=== PATIENT | female | born 1965 | race African-American/Black ===

== ENCOUNTER 2019-10-14 13:55 | Outpatient (CLI) | payer OTHER, SELFPAY ==
[2019-10-14 15:13] LABS: Magnesium 2.1 mg/dL (1.6-2.3); Phosphorus 4.8 mg/dL (2.5-4.5)
[2019-10-14 15:20] LABS: Transferrin 260 mg/dL (206-381)
[2019-10-14 15:40] LABS: Parathyroid Intact 26.7 pg/mL (7.5-53.5)
[2019-10-14 16:07] LABS: Iron 77 ug/dL (37-170)
[2019-10-14 16:58] LABS: Folic Acid > 20.0 ng/mL (2.76->20); Vitamin B12 > 1000.0 pg/mL (239-931)
[2019-10-17 08:33] LABS: Vitamin B1 17 nmol/L (8-30)
== END 2019-10-14 13:56 | disposition home or self-care (01) ==
PROVIDERS: PCP Family Medicine
DX: E66.01 Morbid (severe) obesity due to excess calories (principal); Z98.84 Bariatric surgery status
CPT/HCPCS: 36415; 82306; 82607; 82728; 82746; 83540; 83735; 83970; 84100; 84425; 84466

== ENCOUNTER 2020-06-22 09:35 | Outpatient (CLI) | payer OTHER, SELFPAY ==
[2020-06-22 10:14] LABS: Basophils Absolute Auto 0.1 K/mm3 (0.0-0.1); Basophils Percent Auto 0.8 % (0.2-1.2); Eosinophils Absolute Auto 1.1 K/mm3 (0-0.3); Eosinophils Percent Auto 15.6 % (0-4.4); Hemoglobin 11.1 g/dL (12.0-15.0); Immature Granulocyte Absolute 0.02 K/mm3 (0.00-0.031); Immature Granulocyte Percent A 0.3 % (0-0.5); Lymphocytes Absolute Auto 1.98 K/mm3 (0.9-3.2); Lymphocytes Percent Auto 27.3 % (18.3-44.2); Mean Corpuscular HGB Conc 31.7 g/dl (32-36); Mean Corpuscular Hemoglobin 27.8 pg (26-34); Mean Corpuscular Volume 87.5 fl (80-100); Monocytes Absolute Auto 0.5 K/mm3 (0.1-0.6); Monocytes Percent Auto 7.2 % (2.6-8.5); Neutrophils Absolute Auto 3.5 K/mm3 (1.3-6.7); Neutrophils Percent Auto 48.8 % (45.5-73.1); Platelet Count Result 234 k/mm3 (150-375); Red Cell Distribution Width 15.5 % (11.5-14.5); White Blood Count 7.2 K/mm3 (4.5-10.0)
[2020-06-22 10:25] LABS: INR 1.2
[2020-06-22 10:26] LABS: Partial Thromboplastin Time 41.9 SECONDS (22.3-36.8)
[2020-06-22 10:27] LABS: Alanine Aminotransferase 13 U/L (4-35); Albumin Level 3.8 g/dL (3.5-5.1); Alkaline Phosphatase 95 U/L (38-126); Anion Gap 4 mmol/L (8-16); Aspartate Amino Transferase 23 U/L (14-36); Bilirubin,Total 0.4 mg/dL (0.2-1.3); Blood Urea Nitrogen 15 mg/dL (7-17); Calcium 8.9 mg/dL (8.4-10.2); Carbon Dioxide 28 mmol/L (22-30); Chloride 107 mmol/L (98-107); Cholesterol 183 mg/dL (0-200); Estimated Glomerular Filt Rate > 60; Glucose 89 mg/dL (65-105); HDL Direct 44 mg/dL; Potassium 4.4 mmol/L (3.4-5.0); Sodium 139 mmol/L (137-145); Triglycerides 84 mg/dL (<150)
[2020-06-22 10:38] LABS: LDL Cholesterol Direct 96 mg/dL
[2020-06-22 10:56] LABS: Hemoglobin A1C 5.3 % (<5.7); Iron 51 ug/dL (37-170)
[2020-06-22 11:01] LABS: Parathyroid Intact 139.3 pg/mL (7.5-53.5)
[2020-06-22 11:07] LABS: Percent Iron Saturation 15 % (20-50)
[2020-06-22 11:33] LABS: Folic Acid 18.2 ng/mL (2.76->20)
[2020-06-22 11:40] LABS: Vitamin D 25 Hydroxy 27.6 ng/mL
[2020-06-28 07:44] LABS: Vitamin B1 8 nmol/L (8-30)
== END 2020-06-22 09:36 | disposition home or self-care (01) ==
PROVIDERS: PCP Family Medicine
DX: Z01.818 Encounter for other preprocedural examination (principal); K21.9 Gastro-esophageal reflux disease without esophagitis; E10.49 Type 1 diabetes mellitus with other diabetic neurological complication; G47.33 Obstructive sleep apnea (adult) (pediatric); I10 Essential (primary) hypertension
CPT/HCPCS: 36415; 80053; 80061; 82306; 82607; 82728; 82746; 83036; 83540; 83550; 83735; 83970; 84425; 84443; 85025; 85610; 85730

== ENCOUNTER 2020-07-25 17:40 | Emergency (ER) | payer OTHER, SELFPAY ==
--- NOTE | 2020-07-25 17:48 | ED.SKABFB ---
HPI - Skin/Abscess/Foreign Bdy General Chief complaint: Skin/Abscess/Foreign Body Stated complaint: Rash Time Seen by Provider: 07/25/20 17:48 Source: patient and RN notes reviewed Mode of arrival: ambulatory Limitations: no limitations History of Present Illness HPI narrative: 54-year-old female presents to [facility] with complaints of having rash in the groin area for the past 2 weeks. Patient ambulates with a walker and is morbidly obese, wears depends daily for urinary leakage and states that she has been using a new kind of depends which may precipitated the rash. She has some red irritated areas to her upper inner thighs and groin area, no open skin area or any drainage noted, states no pain but is itchy. Patient states she has applied some Benadryl cream to rash area, denies any fevers, or other symptoms. MD complaint: rash and discoloration Onset (ago): week(s) (2) Tetanus up to date: yes Severity: mild Quality: pruritic Related Data Home Medications Medication Instructions Recorded Confirmed baclofen mg 07/25/20 dabigatran etexilate [Pradaxa] mg PO 07/25/20 diltiazem HCl PO 07/25/20 dronedarone [Multaq] mg 07/25/20 ergocalciferol (vitamin D2) 07/25/20 fluticasone propionate INTRANASAL 07/25/20 furosemide 07/25/20 gabapentin 07/25/20 hydrocodone-acetaminophen tablet 07/25/20 loratadine mg 07/25/20 metoprolol tartrate 07/25/20 multivitamin [Daily-Elaine] tablet 07/25/20 Allergies Allergy/AdvReac Type Severity Reaction Status Date / Time morphine Allergy Unknown Verified 11/21/15 11:30 Penicillins Allergy Unknown Verified 11/21/15 11:30 Review of Systems Review of Systems: Narrative: CONSTITUTIONAL: Denies fever, chills, or sweats. EYES: Denies visual changes, redness, or discharge. ENT: Denies rhinorrhea, congestion, sore throat, or otalgia. CARDIOVASCULAR: Denies chest pain, palpitations, has trace pedal edema RESPIRATORY: Denies cough or dyspnea. GASTROINTESTINAL: Denies abdominal pain, nausea, vomiting, or diarrhea. GENITOURINARY: Denies dysuria or hematuria. SKIN:Positive for rash to upper thighs groin area with itching MUSCULOSKELETAL: Denies back pain,positive for pain to right hip join or myalgia. NEUROLOGIC: Denies headache, numbness, or weakness. PSYCHIATRIC: Denies anxiety or depression. All systems reviewed & are unremarkable except as noted in HPI and below PMFSH Past Medical History Medical History (Updated 07/27/20 @ 08:44 by Sabrina Hurtado NP) Afib Arthritis CHF (congestive heart failure) Diabetes DVT (deep venous thrombosis) HTN (hypertension) Sleep apnea in adult Surgical History Surgical History (Updated 07/27/20 @ 08:42 by Sabrina Hurtado NP) H/O section History of hernia repair History of sleeve gastrectomy Hx of tonsillectomy as child Family History Family History Father Hypertension Cerebrovascular accident Other Family history of arthritis Social History Social History (Updated 07/27/20 @ 08:38 by Sabrina Hurtado NP) Smoking status: Former smoker Tobacco type: cigarettes Alcohol intake: never Substance use: never Living arrangements: with family Gender identity (if verbalized by the patient): Female Comments At time of signature, agree with nursing past medical, surgical, social and family history. There is no relevant family history pertinent to the presenting complaint Exam Narrative: Exam Narrative: GENERAL: Well-appearing, well-nourished,morbidly obese and in no acute distress. HEAD: Normocephalic, atraumatic. EYES: PERRLA and EOMI. ENT: Nares clear, no rhinorrhea or epistaxis. Mucous membranes moist.TM's normal with good light reflex, throat pink with no swelling or exudates. NECK: Supple.no lymphadenopathy CHEST: Clear to auscultation. No respiratory distress.SAO2 100% on room air HEART: irregular rate and rhythm. No murmur heard. Normal joselito
[2020-07-25 17:51] VITALS: BP 160/85; PULSE 55; RESP 18; TEMP 37.7; O2SAT 100
== END 2020-07-25 18:34 | disposition home or self-care (01) ==
PROVIDERS: Emergency Provider Registered Nurse
DX: B37.89 Other sites of candidiasis (principal); L24.89 Irritant contact dermatitis due to other agents; Z87.891 Personal history of nicotine dependence; M19.90 Unspecified osteoarthritis, unspecified site; I11.0 Hypertensive heart disease with heart failure; I50.9 Heart failure, unspecified; E11.9 Type 2 diabetes mellitus without complications; Z86.718 Personal history of other venous thrombosis and embolism
CPT/HCPCS: 99213; G0463

== ENCOUNTER 2020-08-30 10:06 | Outpatient (CLI) | payer OTHER, SELFPAY | END 2020-08-30 10:07 | disposition home or self-care (01) | PROVIDERS: PCP Family Medicine | DX: Z01.818 Encounter for other preprocedural examination (principal) | CPT/HCPCS: 36415; 80323; G0480 ==

== ENCOUNTER 2020-09-20 11:28 | Outpatient (CLI) | payer OTHER, SELFPAY | END 2020-09-20 11:29 | disposition home or self-care (01) | LOC: ANHLAB 11:32 | PROVIDERS: PCP Family Medicine | DX: Z01.812 Encounter for preprocedural laboratory examination (principal) | CPT/HCPCS: 36415; 80323; 82306; G0480 ==

== ENCOUNTER 2020-10-12 13:27 | Outpatient (CLI) | payer OTHER, SELFPAY ==
--- NOTE | ~2020-10-12 | XR_ITS ---
EXAMINATION: XR knee LT 3V DATE: 10/12/2020 14:34 INDICATION: Chronic left knee pain. TECHNIQUE: 3 views of left knee were obtained. COMPARISON: Left knee radiographs 03/20/2017 FINDINGS: Bone alignment is normal. No fracture. There is moderate osteoarthritis of medial compartme nt and mild osteoarthritis of lateral and patellofemoral compartments. No knee joint effusion. IMPRESSION: 1. Moderate left knee osteoarthritis. Reviewed, dictated and finalized at location A. TING SERVICES COORDINATOR
--- NOTE | ~2020-10-12 | XR_ITS ---
XR hip RT min 2V DATE: 10/12/2020 14:34 INDICATION: Chronic right hip pain TECHNIQUE: AP and lateral views COMPARISON: 11/09/2018 right hip FINDINGS: There is severe right hip joint space narrowing and spurring, consistent with severe osteoa rthritis. Due to body habitus, bone detail is limited. In particular, the femoral head detail is somewhat limit ed, preventing ideal evaluation for avascular necrosis. MR imaging would be helpful for this purpose. No fracture or dislocation or bone destruction is evident. The pubic symphysis and right sacroiliac joint are intact. IMPRESSION: Severe right hip osteoarthritis Reviewed, dictated and finalized at location A. IC AID ELIGIBILITY ASSISTANT
== END 2020-10-12 13:28 | disposition home or self-care (01) ==
PROVIDERS: PCP Family Medicine; Visit Provider Family Medicine
DX: M25.562 Pain in left knee (principal); M17.12 Unilateral primary osteoarthritis, left knee; M16.11 Unilateral primary osteoarthritis, right hip
CPT/HCPCS: 73502; 73562

== ENCOUNTER 2021-01-10 14:44 | Outpatient (CLI) | payer OTHER, SELFPAY ==
--- NOTE | ~2021-01-10 | MM_ITS ---
EXAMINATION: MM screening segundo BI w spencer HISTORY: Screening mammogram TECHNIQUE: Craniocaudal and mediolateral oblique 3-D tomosynthesis images were obtained and synthetic 2-D images were generated. CAD analysis was submitted and interpreted. COMPARISON: No prior mammogram is available for comparison at this institution. BREAST PARENCHYMAL COMPOSITION: The breasts are almost entirely fatty. FINDINGS: There is no evidence of suspicious mass, calcification, or architectural distortion to sugg est malignancy in either breast. There has been no suspicious interval change. IMPRESSION: 1. No mammographic evidence of malignancy. 2. Recommend routine screening mammography in one year. BI-RADS Category 1: Negative Reviewed, dictated and finalized at location A.
== END 2021-01-10 14:45 | disposition home or self-care (01) ==
LOC: ANHIMG 14:50
PROVIDERS: PCP Family Medicine; Visit Provider Family Medicine
DX: Z12.31 Encounter for screening mammogram for malignant neoplasm of breast (principal)
CPT/HCPCS: 77063; 77067

== ENCOUNTER 2021-04-24 12:16 | Outpatient (CLI) | payer OTHER, SELFPAY ==
[2021-04-24 12:40] LABS: Basophils Absolute Auto 0.1 K/mm3 (0.0-0.1); Basophils Percent Auto 0.8 % (0.2-1.2); Eosinophils Absolute Auto 0.5 K/mm3 (0-0.3); Eosinophils Percent Auto 5.8 % (0-4.4); Hematocrit 35.8 % (37.0-47.0); Immature Granulocyte Absolute 0.03 K/mm3 (0.00-0.031); Immature Granulocyte Percent A 0.4 % (0-0.5); Lymphocytes Absolute Auto 2.64 K/mm3 (0.9-3.2); Lymphocytes Percent Auto 34.2 % (18.3-44.2); Mean Corpuscular HGB Conc 30.7 g/dl (32-36); Mean Corpuscular Hemoglobin 27.1 pg (26-34); Mean Corpuscular Volume 88.2 fl (80-100); Mean Platelet Volume 11.1 fl (7.4-10.4); Monocytes Absolute Auto 0.8 K/mm3 (0.1-0.6); Monocytes Percent Auto 10.4 % (2.6-8.5); Neutrophils Absolute Auto 3.7 K/mm3 (1.3-6.7); Neutrophils Percent Auto 48.4 % (45.5-73.1); Platelet Count Result 227 k/mm3 (150-375); Red Blood Count 4.06 M/mm3 (4.2-5.4); Red Cell Distribution Width 15.9 % (11.5-14.5); White Blood Count 7.7 K/mm3 (4.5-10.0)
[2021-04-24 13:28] LABS: Alanine Aminotransferase 13 U/L (4-35); Albumin Level 3.9 g/dL (3.5-5.1); Alkaline Phosphatase 92 U/L (38-126); Anion Gap 9 mmol/L (8-16); Aspartate Amino Transferase 23 U/L (14-36); Bilirubin,Total 0.5 mg/dL (0.2-1.3); Blood Urea Nitrogen 24 mg/dL (7-17); Carbon Dioxide 22 mmol/L (22-30); Chloride 107 mmol/L (98-107); Cholesterol 215 mg/dL (0-200); Estimated Glomerular Filt Rate > 60; Glucose 91 mg/dL (65-110); HDL Direct 51 mg/dL; Potassium 4.1 mmol/L (3.4-5.0); Sodium 138 mmol/L (137-145); Triglycerides 92 mg/dL (<150)
[2021-04-24 13:39] LABS: LDL Cholesterol Direct 95 mg/dL
== END 2021-04-24 12:17 | disposition home or self-care (01) ==
PROVIDERS: PCP Family Medicine; Visit Provider Nurse Practitioner Family
DX: E78.5 Hyperlipidemia, unspecified (principal); D64.9 Anemia, unspecified
CPT/HCPCS: 36415; 80053; 80061; 85025

== ENCOUNTER 2021-04-24 12:47 | Emergency (ER) | payer OTHER, SELFPAY ==
--- NOTE | ~2021-04-24 | XR_ITS ---
EXAMINATION: XR wrist RT min 3V INDICATION: Right wrist pain TECHNIQUE: Four views of the right wrist are obtained. COMPARISON: None available FINDINGS: There is no fracture, dislocation, or subluxation. Mild osteoarthritis is seen at the first carpometacarpal joint. The soft tissues are unremarkable. IMPRESSION: 1. No acute osseous abnormality. Reviewed, dictated and finalized at location B.
[2021-04-24 13:39] VITALS: BP 118/46; PULSE 52; RESP 14; TEMP 36.3; O2SAT 99
[2021-04-24 14:46] VITALS: BP 145/66; PULSE 63; RESP 16; O2SAT 96
--- NOTE | 2021-04-24 15:05 | ED.GENADULT ---
HPI - General Adult General Chief complaint: Extremity Problem,Nontraumatic Stated complaint: rt wrist pain Time Seen by Provider: 04/24/21 14:50 Source: patient Mode of arrival: ambulatory Limitations: no limitations History of Present Illness HPI narrative: Patient presents for evaluation of right wrist pain. Symptom onset last week. She cannot identify any precipitating cause or injury. Pain is constant, described as [id number] , rated 7 out of 10 in severity. She has chronic hip pain for which she takes hydrocodone. She states that medication has somewhat helped her pain. She denies loss of range of motion. She is right hand dominant. She has a hx of gout about fifteen years ago but states that her current symptoms are not consistent with those experienced in past with gout. She denies fever, chills, redness, drainage from the affected area. She has underlying history of diabetes but is no longer medication his blood sugars are all under 120. She is currently anticoagulated with Eliquis, recently switched from Pradaxa. No additional complaints or concerns. Related Data Home Medications Medication Instructions Recorded Confirmed baclofen mg 07/25/20 dabigatran etexilate [Pradaxa] mg PO 07/25/20 diltiazem HCl PO 07/25/20 dronedarone [Multaq] mg 07/25/20 ergocalciferol (vitamin D2) 07/25/20 fluticasone propionate INTRANASAL 07/25/20 furosemide 07/25/20 gabapentin 07/25/20 hydrocodone-acetaminophen tablet 07/25/20 loratadine mg 07/25/20 metoprolol tartrate 07/25/20 multivitamin [Daily-Elaine] tablet 07/25/20 Allergies Allergy/AdvReac Type Severity Reaction Status Date / Time morphine Allergy Unknown Verified 11/21/15 11:30 Penicillins Allergy Unknown Verified 11/21/15 11:30 Review of Systems Review of Systems: CONSTITUTIONAL: Denies fever, chills, or sweats. EYES: Denies visual changes, redness, or discharge. ENT: Denies rhinorrhea, congestion, sore throat, or otalgia. CARDIOVASCULAR: Denies chest pain, palpitations, or edema. RESPIRATORY: Denies cough or dyspnea. GASTROINTESTINAL: Denies abdominal pain, nausea, vomiting, or diarrhea. GENITOURINARY: Denies dysuria or hematuria. SKIN: Denies rash or itching. MUSCULOSKELETAL: Reports right wrist pain. Denies back pain, joint pain, or myalgia. NEUROLOGIC: Denies headache, numbness, dizziness, or weakness. PSYCHIATRIC: Denies anxiety or depression. [facility] Past Medical History Medical History Afib Arthritis CHF (congestive heart failure) Diabetes DVT (deep venous thrombosis) HTN (hypertension) Sleep apnea in adult Surgical History Surgical History H/O section History of hernia repair History of sleeve gastrectomy Hx of tonsillectomy as child Family History Family History Father Hypertension Cerebrovascular accident Other Family history of arthritis Social History Social History Smoking status: Former smoker Tobacco type: cigarettes Alcohol intake: never Substance use: never Gender identity (if verbalized by the patient): Female Exam Narrative: GENERAL: Well-appearing, well-nourished, and in no acute distress. HEAD: Normocephalic, atraumatic. EYES: PERRLA and EOMI. ENT: Nares clear, no rhinorrhea or epistaxis. Mucous membranes moist. Oropharynx without tonsillar hypertrophy exudate or other lesions. Bilateral TMs pearly romero nonbulging NECK: Supple. No adenopathy or masses. No carotid bruits or JVD CHEST: Clear to auscultation. No respiratory distress. No wheezes rales or rhonchi HEART: Regular rate and rhythm. No murmur heard. Normal peripheral pulses. ABDOMEN: Soft, nontender, nondistended, normal active bowel sounds. EXTREMITIES: Full range of motion o
== END 2021-04-24 15:59 | disposition home or self-care (01) ==
LOC: ANHED 15:44
PROVIDERS: Emergency Provider Nurse Practitioner; PCP Family Medicine
DX: M77.9 Enthesopathy, unspecified (principal); I48.91 Unspecified atrial fibrillation; M19.90 Unspecified osteoarthritis, unspecified site; I11.0 Hypertensive heart disease with heart failure; I50.9 Heart failure, unspecified; E11.9 Type 2 diabetes mellitus without complications; G47.30 Sleep apnea, unspecified
CPT/HCPCS: 36415; 73110; 80053; 80061; 85025; 99283

== ENCOUNTER 2022-02-07 10:22 | Outpatient (CLI) | payer OTHER, SELFPAY ==
--- NOTE | ~2022-02-07 | MM_ITS ---
EXAMINATION: MM screening segundo BI w spencer HISTORY: Screening mammogram TECHNIQUE: Craniocaudal and mediolateral oblique 3-D tomosynthesis images were obtained and synthetic 2-D images were generated. CAD analysis was submitted and interpreted. COMPARISON: 01/10/2021 bilateral screening mammogram BREAST PARENCHYMAL COMPOSITION: The breasts are almost entirely fatty. FINDINGS: There is no evidence of suspicious mass, calcification, or architectural distortion to sugg est malignancy in either breast. There has been no suspicious interval change. IMPRESSION: 1. No mammographic evidence of malignancy. 2. Recommend routine screening mammography in one year. BI-RADS Category 1: Negative Reviewed, dictated and finalized at location A.
== END 2022-02-07 10:23 | disposition home or self-care (01) ==
PROVIDERS: PCP Family Medicine; Visit Provider Family Medicine
DX: Z12.31 Encounter for screening mammogram for malignant neoplasm of breast (principal)
CPT/HCPCS: 77063; 77067

== ENCOUNTER 2022-03-02 13:23 | Emergency (ER) | payer OTHER, SELFPAY ==
--- NOTE | ~2022-03-02 | XR_ITS ---
XR toe 5th RT min 2V DATE: 03/02/2022 13:44 INDICATION: Jammed right fifth digit today. Pain when walking TECHNIQUE: 4 views COMPARISON: None FINDINGS: There is a subtle virtually nondisplaced linear oblique fracture of the distal shaft and ne ck of the proximal phalanx of the fifth toe, without significant angulation. Normal alignment at the fifth toe. IMPRESSION: Subtle virtually nondisplaced linear oblique fracture of distal shaft and neck of proxima l phalanx Reviewed, dictated and finalized at location A. IMPRESSION: Subtle virtually nondisplaced linear oblique fracture of distal sha ft and neck of proximal phalanx
[2022-03-02 13:28] VITALS: BP 139/52; PULSE 90; RESP 14; TEMP 37; O2SAT 96
--- NOTE | 2022-03-02 14:15 | ED.LOWEXIN ---
HPI - Extremity Injury (Lower) General Chief Complaint: Extremity Injury, Lower Stated Complaint: 5th R toe injury Time Seen by Provider: 03/02/22 13:43 History of Present Illness HPI Narrative: This is a 56-year-old female past medical history of hypertension, who presents to the emergency department complaining of right fifth toe pain. She states while getting out of bed today, the right fifth toe got caught in a hole in her mattress and was twisted. This was associated with immediate, 7 out of 10 sharp pain with angulation of the toe away from the foot. Patient states she pulled the toe back into a normal direction and presents here for evaluation. She states she is able to walk with some pain. She denies fall, head trauma, loss of consciousness, chest pain or other complaints today. She states she has not taken anything for her pain Related Data Home Medications Medication Instructions Recorded Confirmed baclofen 10 mg tablet mg 07/25/20 dabigatran etexilate 75 mg capsule mg PO 07/25/20 (Pradaxa) diltiazem HCl 120 mg PO 07/25/20 capsule,extended release 24 hr dronedarone 400 mg tablet (Multaq) mg 07/25/20 ergocalciferol (vitamin D2) 1,250 07/25/20 mcg (50,000 unit) capsule fluticasone propionate 50 intranasal 07/25/20 mcg/actuation nasal spray,suspension furosemide 80 mg tablet 07/25/20 gabapentin 300 mg capsule 07/25/20 hydrocodone 10 mg-acetaminophen tablet 07/25/20 325 mg tablet loratadine 10 mg tablet mg 07/25/20 metoprolol tartrate 50 mg tablet 07/25/20 multivitamin (Daily-Elaine tablet) tablet 07/25/20 Allergies Allergy/AdvReac Type Severity Reaction Status Date / Time morphine Allergy Unknown Verified 11/21/15 11:30 Penicillins Allergy Unknown Verified 11/21/15 11:30 Review of Systems Review of Systems: CONSTITUTIONAL: Denies fever, chills, or sweats. CARDIOVASCULAR: Denies chest pain, palpitations, or edema. RESPIRATORY: Denies cough or dyspnea. GASTROINTESTINAL: Denies abdominal pain, nausea, vomiting, or diarrhea. MUSCULOSKELETAL: Right fifth toe pain denies back pain, joint pain, or myalgia. NEUROLOGIC: Denies headache, numbness, dizziness, or weakness. PSYCHIATRIC: Denies anxiety or depression. [facility] Past Medical History Medical History Afib Arthritis CHF (congestive heart failure) Diabetes DVT (deep venous thrombosis) HTN (hypertension) Sleep apnea in adult Surgical History Surgical History H/O section History of hernia repair History of sleeve gastrectomy Hx of tonsillectomy as child Family History Family History Father Hypertension Cerebrovascular accident Other Family history of arthritis Social History Social History Smoking status: Former smoker Tobacco type: cigarettes Alcohol intake: never Substance use: never Gender identity (if verbalized by the patient): Female Exam Narrative: GENERAL: Well-appearing, well-nourished, and in no acute distress. Obese HEAD: Normocephalic, atraumatic. EYES: PERRLA and EOMI. ENT: Nares clear, no rhinorrhea or epistaxis. Mucous membranes moist. Oropharynx without tonsillar hypertrophy exudate or other lesions. Bilateral TMs pearly romero nonbulging NECK: Supple. No adenopathy or masses. No carotid bruits or JVD CHEST: Clear to auscultation. No respiratory distress. No wheezes rales or rhonchi HEART: Regular rate and rhythm. No murmur heard. Normal peripheral pulses. ABDOMEN: Soft, nontender, nondistended, normal active bowel sounds. EXTREMITIES: Mild swelling and tenderness to palpation of the right great toe. No noted ecchymosis. Otherwise normal range of motion. Normal range of motion. No edema. SKIN: Warm, dry, no rash. NEURO: No foca
[2022-03-02] MEDS: ACETAMINOPHEN 500 MG TABLET 1000 MG PO (14:22)
[2022-03-02 14:44] VITALS: BP 134/88; PULSE 88; RESP 18; TEMP 36.8; O2SAT 97
== END 2022-03-02 14:46 | disposition home or self-care (01) ==
PROVIDERS: Emergency Provider Preventive Medicine Aerospace Medicine; PCP Family Medicine
DX: S92.514A Nondisplaced fracture of proximal phalanx of right lesser toe(s), initial encounter for closed fracture (principal); I48.91 Unspecified atrial fibrillation; I50.9 Heart failure, unspecified; I11.0 Hypertensive heart disease with heart failure; E11.9 Type 2 diabetes mellitus without complications; M19.90 Unspecified osteoarthritis, unspecified site; G47.30 Sleep apnea, unspecified; Z86.718 Personal history of other venous thrombosis and embolism; Z98.84 Bariatric surgery status; Z87.891 Personal history of nicotine dependence; X50.9XXA Other and unspecified overexertion or strenuous movements or postures, initial encounter
CPT/HCPCS: 73660; 99284; A9270

== ENCOUNTER 2022-04-26 09:41 | Emergency (ER) | payer OTHER, SELFPAY ==
--- NOTE | ~2022-04-26 | US_ITS ---
EXAMINATION: US venous doppler LE RT DATE: 04/26/2022 10:53 INDICATION: Right lower limb pain and swelling TECHNIQUE: Sneed scale images without and with compression and Doppler images of the right lower extre mity veins were obtained. COMPARISON: 09/24/2018 FINDINGS: The right common femoral vein, profunda femoral vein, femoral vein, popliteal vein, peronea l trunk, posterior tibial veins, and greater saphenous vein are patent. IMPRESSION: 1. Patent right lower extremity veins. No evidence of deep venous thrombosis. Reviewed, dictated and finalized at location B.
--- NOTE | ~2022-04-26 | XR_ITS ---
EXAMINATION: XR knee RT 3V DATE: 04/26/2022 10:21 INDICATION: Posterior knee pain. TECHNIQUE: 3 views of right knee were obtained. COMPARISON: Right knee radiographs 11/09/2018 FINDINGS: Bone alignment is normal. No fracture. There is moderate osteoarthritis of medial compartme nt and mild osteoarthritis of lateral and patellofemoral compartments. No knee joint effusion. IMPRESSION: 1. Moderate right knee osteoarthritis. Reviewed, dictated and finalized at location A.
[2022-04-26 10:04] VITALS: BP 135/54; PULSE 52; RESP 20; TEMP 36.5; O2SAT 100
--- NOTE | 2022-04-26 11:44 | ED.LOWEXIN ---
HPI - Extremity Injury (Lower) General Chief Complaint: Extremity Injury, Lower Stated Complaint: right leg pain Time Seen by Provider: 04/26/22 09:56 History of Present Illness HPI Narrative: 56-year-old woman presents emergency room complaints of atraumatic right knee discomfort. Patient states pain is been present for 3 days. Pain is worse when attempting to ambulate. Pain radiates into her thigh and into her calf. Currently takes Eliquis for history of congestive heart failure. Patient states that she has taken baclofen Related Data Home Medications Medication Instructions Recorded Confirmed baclofen 10 mg tablet mg 07/25/20 dabigatran etexilate 75 mg capsule mg PO 07/25/20 (Pradaxa) diltiazem HCl 120 mg PO 07/25/20 capsule,extended release 24 hr dronedarone 400 mg tablet (Multaq) mg 07/25/20 ergocalciferol (vitamin D2) 1,250 07/25/20 mcg (50,000 unit) capsule fluticasone propionate 50 intranasal 07/25/20 mcg/actuation nasal spray,suspension furosemide 80 mg tablet 07/25/20 gabapentin 300 mg capsule 07/25/20 hydrocodone 10 mg-acetaminophen tablet 07/25/20 325 mg tablet loratadine 10 mg tablet mg 07/25/20 metoprolol tartrate 50 mg tablet 07/25/20 multivitamin (Daily-Elaine tablet) tablet 07/25/20 Allergies Allergy/AdvReac Type Severity Reaction Status Date / Time morphine Allergy Unknown Hives Verified 04/26/22 10:10 Penicillins Allergy Unknown Hives Verified 04/26/22 10:10 Review of Systems Review of Systems: CONSTITUTIONAL: Denies fever, chills, or sweats. EYES: Denies visual changes, redness, or discharge. ENT: Denies rhinorrhea, congestion, sore throat, or otalgia. CARDIOVASCULAR: Denies chest pain, palpitations, or edema. RESPIRATORY: Denies cough or dyspnea. GASTROINTESTINAL: Denies abdominal pain, nausea, vomiting, or diarrhea. GENITOURINARY: Denies dysuria or hematuria. SKIN: Denies rash or itching. MUSCULOSKELETAL: Reports right knee pain NEUROLOGIC: Denies headache, numbness, dizziness, or weakness. PSYCHIATRIC: Denies anxiety or depression. [facility] Past Medical History Medical History Afib Arthritis CHF (congestive heart failure) Diabetes DVT (deep venous thrombosis) HTN (hypertension) Sleep apnea in adult Surgical History Surgical History H/O section History of hernia repair History of sleeve gastrectomy Hx of tonsillectomy as child Family History Family History Father Hypertension Cerebrovascular accident Other Family history of arthritis Social History Social History Smoking status: Former smoker Tobacco type: cigarettes Alcohol intake: never Substance use: never Gender identity (if verbalized by the patient): Female Exam Narrative: GENERAL: Well-appearing, well-nourished, no physical limitations, and in no acute distress. HEAD: Normocephalic, atraumatic. EYES: Conjunctivae normal, PERRLA and EOMI. CHEST: Clear to auscultation. No respiratory distress. No wheezes rales or rhonchi. HEART: Regular rate and rhythm. No murmur heard. Normal peripheral pulses. BACK: No cervical/thoracic/lumbar tenderness, step-offs, bony abnormality; FROM EXTREMITIES: Right knee: Tenderness to the popliteal area. No palpable mass. Full range of motion of the knee. No joint laxity negative Jerman's. Neurovascular is intact distally. SKIN: Warm, dry, no rash. No noted wounds NEURO: No focal deficits. Alert and oriented x3. MAEW. CN's II-XI intact bilaterally, normal gait PSYCH: Cooperative. Normal mood and affect. Course Vital Signs Vital signs: Vital Signs Temperature 36.5 C 04/26/22 10:04 Pulse Rate 52 L 04/26/22 10:04 Respiratory Rate 20 04/26/22 10:04 Blood Pressure 135/54 L 04/26/22 10:04 Pulse
== END 2022-04-26 12:44 | disposition home or self-care (01) ==
PROVIDERS: Emergency Provider Nurse Practitioner Family; PCP Family Medicine
DX: M25.561 Pain in right knee (principal); I50.9 Heart failure, unspecified; I11.0 Hypertensive heart disease with heart failure; I48.91 Unspecified atrial fibrillation; E11.9 Type 2 diabetes mellitus without complications; M19.90 Unspecified osteoarthritis, unspecified site; G47.30 Sleep apnea, unspecified; M17.11 Unilateral primary osteoarthritis, right knee; Z86.718 Personal history of other venous thrombosis and embolism; Z79.01 Long term (current) use of anticoagulants; Z98.84 Bariatric surgery status; Z87.891 Personal history of nicotine dependence
CPT/HCPCS: 73562; 93971; 96372; 99284; J1100

== ENCOUNTER 2022-05-17 02:36 | Observation (INO) | payer OTHER, SELFPAY ==
--- NOTE | ~2022-05-17 | XR_ITS ---
EXAMINATION: XR sm bowel follow through DATE: 05/17/2022 17:13 INDICATION: Small bowel obstruction TECHNIQUE: Bridge Attacher radiograph(s) of the abdomen was/were obtained. Oral contrast was administered thro ugh the nasogastric tube, and sequential radiographs of the abdomen were obtained until oral contrast was noted to be in the proximal colon. COMPARISON: CT from today FINDINGS: Bridge Attacher image demonstrates nasogastric tube in the stomach and multiple mildly dilated loops of small bowel. Contrast from earlier CT examination partially opacifies the urinary bladder. There a re changes of mesh ventral hernia repair. Transit time from the stomach to proximal colon was approxi mately five hours. There are multiple dilated loops of small bowel throughout the abdomen. There is a large volume of stool in the proximal colon. IMPRESSION: 1. Dilated small bowel with delayed transit, consistent with ileus versus partial obstruction. Reviewed, dictated and finalized at location A. IMPRESSION: 1. Dilated small bowel with delayed transit, consistent with ileus versus parti al obstruction.
--- NOTE | ~2022-05-17 | CT_ITS ---
EXAMINATION: CT abdomen pelvis w con DATE: 05/17/2022 04:33 INDICATION: Upper abdominal pain, epigastric pain for one hour. Vomiting. TECHNIQUE: Computed tomography (CT) of the abdomen and pelvis was performed with 100 CC Omnipaque 350 intravenous contrast. Automated exposure control and iterative reconstruction technique were employe d. Exam dose: 1632.50 mGy-cm total exam DLP. COMPARISON: 06/16/2018 CT abdomen pelvis FINDINGS: The lung bases are clear. Cardiomegaly. No pericardial or pleural effusion. Status post cholecystectomy. No hepatic, splenic, pancreatic, adrenal space-occupying mass lesion. No bile duct or pancreatic duct dilatation. 2.6 cm right renal cyst. There is focal scarring along the lateral aspect of the mid to lower right k [place]. Numerous calcifications at the lower pole of the left kidney no ureteral calculus or hydroureteroneph rosis. Uterus, adnexal areas and urinary bladder appear unremarkable. Normal caliber of the abdominal aorta. No intraperitoneal or retroperitoneal or pelvic mass lesion or adenopathy or ascites. Normal appendix. There is mild distention of the jejunum compared to the ileum which might be due to mild partial obstruction or mild adynamic ileus or enteritis. Consider small bowel series if clinical ly appropriate. Otherwise no bowel obstruction, pneumatosis or intraperitoneal free air. Severe bilateral hip osteoarthritis. No suspicious osteolytic or osteoblastic lesions. Small sliding hiatal hernia. Status post gastric bypass surgery. Status post ventral abdominal wall hernia repair. IMPRESSION: Mild distention but no abnormal dilatation of the jejunum compared to the ilium seminal consider enteritis, mild adynamic ileus, partial small bowel obstruction. Small bowel series may be o f benefit if clinically appropriate Normal appendix Postoperative change of the stomach Small sliding hiatal hernia Status post cholecystectomy Status post ventral abdominal wall hernia repair 2.6 cm right renal cyst Mild mid and lower lateral right renal scarring Multiple calcifications at the lower pole of the left kidney Severe bilateral hip osteoarthritis Reviewed, dictated and finalized at Location [facility]. Reviewed, dictated and finalized at location A. IMPRESSION: Mild distention but no abnormal dilatation of the jejunum compared to the ilium seminal consider enteritis, mild adynamic ileus, partial small trey wel obstruction. Small bowel series may be of benefit if clinically appropriate Normal appendix Postoperative change of the stomach Small sliding hiatal hernia Status post cholecystectomy Status post ventral abdominal wall hernia repair 2.6 cm right renal cyst Mild mid and lower lateral right renal scarring Multiple calcifications at the lower pole of the left kidney Severe bilateral hip osteoarthritis
--- NOTE | ~2022-05-17 | XR_ITS ---
EXAMINATION: XR abdomen NG/feed tube insert DATE: 05/17/2022 07:30 INDICATION: Nasogastric tube insertion TECHNIQUE: A supine view of the abdomen and lower chest was obtained for evaluation of feeding tube placement. COMPARISON: None. FINDINGS: Nasogastric tube with proximal side-port in the body of the stomach with distal tip collimated beyond the inferior margin of the [id number]. Visualized bilateral mid to lower lung zones are clear. Ca rdiomegaly. Postoperative change of prior ventral hernia mesh repair. IMPRESSION: 1. Nasogastric tube in the stomach. Reviewed, dictated and finalized at location A.
[2022-05-17 02:51] VITALS: BP 158/115; PULSE 92; RESP 20; TEMP 36.1; O2SAT 100
[2022-05-17 03:49] LABS: Basophils Percent Auto 0.6 % (0.2-1.2); Eosinophils Absolute Auto 0.1 K/mm3 (0-0.3); Eosinophils Percent Auto 1.3 % (0-4.4); Hematocrit 37.1 % (37.0-47.0); Hemoglobin 11.3 g/dL (12.0-15.0); Immature Granulocyte Absolute 0.02 K/mm3 (0.00-0.031); Immature Granulocyte Percent A 0.3 % (0-0.5); Lymphocytes Absolute Auto 1.27 K/mm3 (0.9-3.2); Lymphocytes Percent Auto 18.4 % (18.3-44.2); Mean Corpuscular HGB Conc 30.5 g/dl (32-36); Mean Corpuscular Hemoglobin 27.7 pg (26-34); Mean Corpuscular Volume 90.9 fl (80-100); Mean Platelet Volume 11.1 fl (7.4-10.4); Monocytes Absolute Auto 0.4 K/mm3 (0.1-0.6); Monocytes Percent Auto 5.5 % (2.6-8.5); Neutrophils Absolute Auto 5.1 K/mm3 (1.3-6.7); Neutrophils Percent Auto 73.9 % (45.5-73.1); Platelet Count Result 202 k/mm3 (150-375); Red Blood Count 4.08 M/mm3 (4.2-5.4); Red Cell Distribution Width 15.6 % (11.5-14.5); White Blood Count 6.9 K/mm3 (4.5-10.0)
[2022-05-17 04:00] LABS: Alanine Aminotransferase 18 U/L (6-35); Albumin Level 3.9 g/dL (3.5-5.1); Alkaline Phosphatase 101 U/L (38-126); Anion Gap 6 mmol/L (8-16); Aspartate Amino Transferase 22 U/L (14-36); Bilirubin,Total 0.3 mg/dL (0.2-1.3); Blood Urea Nitrogen 13 mg/dL (7-17); Calcium 8.6 mg/dL (8.4-10.2); Carbon Dioxide 27 mmol/L (22-30); Chloride 107 mmol/L (98-107); Estimated CRCL calculation 68 ml/min; Estimated Glomerular Filt Rate 47; Glucose 145 mg/dL (65-110); Lipase 31 U/L (23-300); Potassium 4.7 mmol/L (3.4-5.0); Sodium 140 mmol/L (137-145)
[2022-05-17] MEDS: SODIUM CHLORIDE 0.9% IV 1,000 ML 999 ML (04:02)
[2022-05-17] MEDS: ONDANSETRON INJ 4 MG/2 ML VIAL (04:02)
--- NOTE | 2022-05-17 04:30 | ED.ABDPAIN ---
HPI - Abdominal Pain General Chief Complaint: Abdominal Pain Stated Complaint: ABD Pain Time Seen by Provider: 05/17/22 02:42 Source: RN notes reviewed History of Present Illness HPI narrative: Patient presents emergency department from home for abdominal pain. Patient states symptoms began approximately 2 hours ago. The pain is located across the upper abdomen described as sharp and stabbing in nature has been associate with nausea and vomiting. Patient states she not taking thing for the symptoms at home states she does have a history of a bowel obstruction she denies any fevers or chills chest pain shortness of breath diarrhea or any other symptoms Related Data Home Medications Medication Instructions Recorded Confirmed baclofen 10 mg tablet mg 07/25/20 dabigatran etexilate 75 mg capsule mg PO 07/25/20 (Pradaxa) diltiazem HCl 120 mg PO 07/25/20 capsule,extended release 24 hr dronedarone 400 mg tablet (Multaq) mg 07/25/20 ergocalciferol (vitamin D2) 1,250 07/25/20 mcg (50,000 unit) capsule fluticasone propionate 50 intranasal 07/25/20 mcg/actuation nasal spray,suspension furosemide 80 mg tablet 07/25/20 gabapentin 300 mg capsule 07/25/20 hydrocodone 10 mg-acetaminophen tablet 07/25/20 325 mg tablet loratadine 10 mg tablet mg 07/25/20 metoprolol tartrate 50 mg tablet 07/25/20 multivitamin (Daily-Elaine tablet) tablet 07/25/20 Allergies Allergy/AdvReac Type Severity Reaction Status Date / Time morphine Allergy Unknown Hives Verified 05/17/22 02:39 Penicillins Allergy Unknown Hives Verified 05/17/22 02:39 Review of Systems Review of Systems: Gen.: Denies fevers or chills HPI ENT: Denies congestion Respiratory: Denies shortness of breath or cough CV: Denies chest pain or palpitations GI: See HPI Musculoskeletal: Denies back pain or muscle pain Neuro: Denies numbness, tingling, weakness or focal weakness Skin: Denies rash Except as documented, all other systems reviewed and negative [facility] Past Medical History Medical History Afib Arthritis CHF (congestive heart failure) Diabetes DVT (deep venous thrombosis) HTN (hypertension) Sleep apnea in adult Surgical History Surgical History H/O section History of hernia repair History of sleeve gastrectomy Hx of tonsillectomy as child Family History Family History Father Hypertension Cerebrovascular accident Other Family history of arthritis Social History Social History Smoking status: Former smoker Tobacco type: cigarettes Alcohol intake: never Substance use: never Gender identity (if verbalized by the patient): Female Exam Narrative: APPEARANCE: No acute distress, nontoxic, resting in bed HEENT: Normocephalic, atraumatic, OMM RESPIRATORY: No respiratory distress, clear to auscultation bilaterally with no rhonchi wheezing or rales CARDIOVASCULAR: RRR s murmur ABDOMINAL: Obese, soft nondistended tender palpation epigastric and right upper quadrant left upper quadrant no tenderness in right lower quadrant left lower quadrant no rebound or guarding MUSCULOSKELETAl: Moves all extremities. No clubbing, cyanosis or edema. NEURO: Awake and alert. Following commands, speech normal, no focal deficits SKIN:: Warm, dry. Normal Color PSYCHIATRIC: Normal affect/mood Course Course Emergency Course: Discussed Dr. Salguero presentation work-up agrees with consult request NG tube Discussed with Dr. Nuñez agrees with admission Discussed with patient and family results of workup and diagnosis. Discussed need for admission. Patient and family understand and agree to current treatment plan Vital Signs Vital signs: Vital Signs Temperature 97.0 F L 05/17/22 02:51 Pulse Rate 92 05/17/22
[2022-05-17] MEDS: PANTOPRAZOLE SODIUM IV 40 MG VIAL IV PUSH ×2 (05:15→18:06)
[2022-05-17] MEDS: HYDROmorphone HCL INJ (*CRX) 1 MG/ML SYR IV PUSH ×4 (05:15→17:37)
[2022-05-17] MEDS: ONDANSETRON INJ 4 MG/2 ML VIAL IV PUSH ×2 (06:33→17:36)
[2022-05-17 06:39] LABS: Lactic Acid Reflex 1.2 mmol/L (0.7-2.0)
[2022-05-17 07:53] LABS: Magnesium 2.2 mg/dL (1.6-2.3)
--- NOTE | 2022-05-17 07:56 | PC.NURSE ---
Dr. Zuleta informed of pt high blood pressure. Order received for labetalol
--- NOTE | 2022-05-17 08:01 | PC.NURSE ---
Pt heart rate noted to be around 50 so will not give labetalol at this time. Pt blood pressure reading has gone down w/o intervention at this time.
[2022-05-17 08:02] VITALS: BP 155/95; PULSE 52; RESP 12; O2SAT 100
--- NOTE | 2022-05-17 10:15 | ADMGEN ---
This patient, Isabela Moore, was admitted to 3 Medical Room 346-01 @ 0830. Patient/family oriented to hospital policies and general routines including ID bracelet, bed and alarms, visiting hours, pain management, procedures, bathroom and other care routines, personal items, smoking policy, room service/diet, and visiting hours. Information on how to activate the Rapid Response Team has been discussed. Patient/Family are encouraged to report perceived risks to care and to ask questions if they do not understand what they are told or what they should do.
[2022-05-17] MEDS: SODIUM CHLORIDE 0.9% IV 1,000 ML 125 ML IV CONT (10:46)
--- NOTE | 2022-05-17 11:19 | PM.CNGS ---
Assessment and Plan Assessment and plan (1) Small bowel obstruction: Code(s): K56.609 - Unspecified intestinal obstruction, unspecified as to partial versus complete obstruction Status: Acute Assessment and Plan: exam largely benign, will cont conservative measures c NG decompression, bowel rest, IV hydration, will get SBS for further evaluation History of Present Illness Consult details Consult date: 05/17/22 Reason for consult: abdominal pain Requesting physician: Lucila Nuñez DO Narrative: The patient year old female with multiple medical issues including severe obesity, emergency department complaining severe crampy abdominal pain. The pt reports that the pain started overnight and was associated with multiple episodes of nausea and emesis. The patient reports this is very similar to her previous episodes of small-bowel obstruction. Of note, the patient reports she had loose bowel movement overnight. The patient reports that she had been previously feeling well. Review of Systems Constitutional: Constitutional: Reports as per HPI, Denies anorexia, Denies chills, Denies fatigue, Denies fever(s), Denies lethargy, Denies malaise, Denies poor appetite, Denies weakness, Denies weight gain and Denies weight loss Eyes: Eyes: Reports no additional eye complaints ENT: Reports system reviewed and no additional complaints, except as documented Cardiovascular: Cardiovascular: Reports no additional cardiovascular complaints Respiratory: Respiratory: Reports no additional respiratory complaints Gastrointestinal: Gastrointestinal: Reports as per HPI, Reports abdominal pain, Reports bloating, Reports change in bowel habits, Reports GI cramping, Reports early satiety, Reports loose stools, Reports vomiting and Denies hematemesis Genitourinary: Genitourinary: Reports no additional female genitourinary complaints Musculoskeletal: Musculoskeletal: Reports no additional musculoskeletal complaints Integumentary/Breasts: Skin/Breast: Reports system reviewed and no additional complaints, except as docu Neurologic: Reports system reviewed and no additional complaints, except as documented Psychiatric: Psychiatric: Reports no additional psychiatric complaints Endocrine: Endocrine: Reports no additional endocrine complaints Hematologic/Lymphatic: Hematologic/Lymphatic: Reports no additional hematologic/lymphatic complaints Allergic/Immunologic: Allergic/Immunologic: Reports no additional allergic/immunologic complaints [facility] Past Medical History Medical History Afib Arthritis CHF (congestive heart failure) Diabetes DVT (deep venous thrombosis) HTN (hypertension) Sleep apnea in adult Surgical History Surgical History H/O section History of hernia repair History of sleeve gastrectomy Hx of tonsillectomy as child Family History Family History Father Hypertension Cerebrovascular accident Other Family history of arthritis Social History Social History Smoking status: Current some day smoker Tobacco type: cigarettes Alcohol intake: former Substance use: never Gender identity (if verbalized by the patient): Female Spiritual care concerns: No Meds Home Medications and Allergies Home Medications Medication Instructions Recorded Confirmed Type baclofen 10 mg tablet 10 mg PO HS 07/25/20 05/17/22 History dabigatran etexilate 75 mg capsule mg PO 07/25/20 History (Pradaxa) diltiazem HCl 120 mg PO 07/25/20 History capsule,extended release 24 hr dronedarone 400 mg tablet (Multaq) 400 mg PO BID 07/25/20 05/17/22 History ergocalciferol (vitamin D2) 1,250 07/25/20 History mcg (50,000 unit) capsule fluconazole 150 mg tablet 150 mg PO DAILY #2 tabs 07/25/20 Rx
--- NOTE | 2022-05-17 13:33 | PM.IMHP ---
H&P: HPI History of Present Illness Date/Time: 05/17/22 13:33 Chief Complaint: abdominal pain Narrative: ED-HPI narrative: Patient presents emergency department from home for abdominal pain.? Patient states symptoms began approximately 2 hours ago.? The pain is located across the upper abdomen described as sharp and stabbing in nature has been associate with nausea and vomiting.? Patient states she not taking thing for the symptoms at home states she does have a history of a bowel obstruction she denies any fevers or chills chest pain shortness of breath diarrhea or any other symptoms patient is a 56-year-old morbidly obese female with past medical history gastric sleeve, vental hernia and SBO, presented with c/o abdominal pain, N/V, symptoms started 2 hrs prior to coming to the ER, patient stats she is not passing gas no BM, CT scan of abdomen showed: ?Mild distention but no abnormal dilatation of the jejunum compared to the ilium seminal consider enteritis, mild adynamic ileus, partial small bowel obstruction. Small bowel series may be of benefit if clinically appropriate, patient is placed on NG tube to decopress abdomen, will keep patient and conservatively monitor, patient will be seen by surgery services and further recommendation to follow. Patient is admitted as in patient and will stay in the hospital for 2 midnights due SBO Review of Systems Constitutional: Constitutional: Reports as per HPI, Denies anorexia, Denies chills, Denies fatigue, Denies fever(s), Denies lethargy, Denies malaise, Denies poor appetite, Denies weakness, Denies weight gain and Denies weight loss PMFSH Past Medical History Medical History (Updated 05/17/22 @ 13:55 by Bruce White MD) Afib Arthritis CHF (congestive heart failure) Diabetes DVT (deep venous thrombosis) HTN (hypertension) Sleep apnea in adult Surgical History Surgical History H/O section History of hernia repair History of sleeve gastrectomy Hx of tonsillectomy as child Family History Family History Father Hypertension Cerebrovascular accident Other Family history of arthritis Social History Social History Smoking status: Current some day smoker Tobacco type: cigarettes Alcohol intake: former Substance use: never Gender identity (if verbalized by the patient): Female Spiritual care concerns: No Meds Home Medications and Allergies Home Medications Medication Instructions Recorded Confirmed Type baclofen 10 mg tablet 10 mg PO HS 07/25/20 05/17/22 History dronedarone 400 mg tablet (Multaq) 400 mg PO BID 07/25/20 05/17/22 History fluticasone propionate 50 2 spray intranasal DAILY PRN Nasal 07/25/20 05/17/22 History mcg/actuation nasal Congestion spray,suspension furosemide 80 mg tablet 80 mg PO DAILY 07/25/20 05/17/22 History gabapentin 300 mg capsule 300 mg PO BID PRN Pain 07/25/20 05/17/22 History hydrocodone 10 mg-acetaminophen See Rx Instructions .Route 07/25/20 05/17/22 History 325 mg tablet .COMPLEX PRN Pain metoprolol tartrate 50 mg tablet 50 mg PO BID 07/25/20 05/17/22 History multivitamin (Daily-Elaine tablet) 1 tablet PO DAILY 07/25/20 05/17/22 History cyclobenzaprine 10 mg tablet 10 mg PO TID PRN muscle spasm #21 04/24/21 05/17/22 Rx tabs apixaban 5 mg tablet (Eliquis) 5 mg PO BID 05/17/22 05/17/22 History bupropion HCl 75 mg tablet 75 mg PO DAILY 05/17/22 05/17/22 History potassium chloride 10 mEq 10 meq PO DAILY 05/17/22 05/17/22 History tablet,extended release(part/cryst) (Klor-Con M) Allergies Allergy/AdvReac Type Severity Reaction Status Date / Time morphine Allergy Unknown Hives Verified 05/17/22 02:39 Penicillins Allergy Unknown Hives Verified 05/17/22 02:39 Vital Signs Vital Signs - 24 hr 05/17/22 02:51
[2022-05-17 18:38] LABS: Glucose Point of Care 183 mg/dl (65-105)
[2022-05-17 19:24] LABS: Hemoglobin A1C 5.6 % (<5.7)
[2022-05-17] MEDS: ENOXAPARIN 120 MG/0.8 ML SYRINGE SUB-Q (20:09)
[2022-05-17 20:40] LABS: Glucose Point of Care 163 mg/dl (65-105)
[2022-05-17 21:50] VITALS: BP 131/77; PULSE 54; RESP 16; TEMP 37; O2SAT 94
[2022-05-18 00:13] LABS: Glucose Point of Care 145 mg/dl (65-105)
[2022-05-18] MEDS: HYDROmorphone HCL INJ (*CRX) 1 MG/ML SYR IV PUSH ×2 (01:44→10:53)
[2022-05-18] MEDS: SODIUM CHLORIDE 0.9% IV 1,000 ML 125 ML IV CONT ×3 (01:44→10:49)
[2022-05-18 01:51] LABS: Appearance Urine Slightly Cloudy (Clear); Bilirubin Urine Negative (Negative); Blood Urine Negative (Negative); Color Urine Yellow (Yellow); Glucose Urine UA Negative (Negative); Ketones Urine Negative (Negative); Leukocyte Esterase Ur Negative LEU/UL (Negative); Nitrate Urine Negative (Negative); Protein Urine 1+ mg/dL (Negative); Specific Grav Ur 1.025 (1.001-1.035); Urobilinogen Urine 0.2 mg/dL (<2.0); pH Urine 5.5 (5.0-9.0)
[2022-05-18 01:56] LABS: Bacteria Urine 4+ /hpf; Mucus Urine Rare /lpf; Squamous Epithelial Cell Urine Many /hpf (Few)
[2022-05-18 02:06] LABS: Add Urine Microscopic? YES
[2022-05-18 05:45] LABS: Basophils Absolute Auto 0.1 K/mm3 (0.0-0.1); Basophils Percent Auto 0.5 % (0.2-1.2); Eosinophils Absolute Auto 0.1 K/mm3 (0-0.3); Eosinophils Percent Auto 0.5 % (0-4.4); Hemoglobin 10.9 g/dL (12.0-15.0); Immature Granulocyte Absolute 0.03 K/mm3 (0.00-0.031); Immature Granulocyte Percent A 0.3 % (0-0.5); Lymphocytes Absolute Auto 3.11 K/mm3 (0.9-3.2); Lymphocytes Percent Auto 29.8 % (18.3-44.2); Mean Corpuscular HGB Conc 30.3 g/dl (32-36); Mean Corpuscular Hemoglobin 27.3 pg (26-34); Mean Corpuscular Volume 90.2 fl (80-100); Mean Platelet Volume 11.8 fl (7.4-10.4); Monocytes Absolute Auto 1.1 K/mm3 (0.1-0.6); Monocytes Percent Auto 10.6 % (2.6-8.5); Neutrophils Absolute Auto 6.1 K/mm3 (1.3-6.7); Neutrophils Percent Auto 58.3 % (45.5-73.1); Platelet Count Result 217 k/mm3 (150-375); Red Blood Count 3.99 M/mm3 (4.2-5.4); Red Cell Distribution Width 15.7 % (11.5-14.5); White Blood Count 10.4 K/mm3 (4.5-10.0)
[2022-05-18 06:00] VITALS: BP 140/95; PULSE 63; RESP 22; TEMP 37; O2SAT 97
[2022-05-18 06:08] LABS: Glucose Point of Care 133 mg/dl (65-105)
[2022-05-18 06:34] LABS: Alanine Aminotransferase 17 U/L (6-35); Albumin Level 3.6 g/dL (3.5-5.1); Alkaline Phosphatase 88 U/L (38-126); Anion Gap 9 mmol/L (8-16); Aspartate Amino Transferase 17 U/L (14-36); Bilirubin,Total 0.5 mg/dL (0.2-1.3); Blood Urea Nitrogen 12 mg/dL (7-17); Calcium 8.6 mg/dL (8.4-10.2); Carbon Dioxide 24 mmol/L (22-30); Chloride 111 mmol/L (98-107); Estimated CRCL calculation 86 ml/min; Estimated Glomerular Filt Rate > 60; Glucose 118 mg/dL (65-110); Magnesium 2.2 mg/dL (1.6-2.3); Potassium 4.4 mmol/L (3.4-5.0); Sodium 144 mmol/L (137-145)
[2022-05-18] MEDS: ENOXAPARIN 120 MG/0.8 ML SYRINGE SUB-Q (08:34)
[2022-05-18 08:38] LABS: Glucose Point of Care 113 mg/dl (65-105)
--- NOTE | 2022-05-18 08:53 | PM.PNGS ---
Progress Note: A&P Assessment and Plan (1) Small bowel obstruction: Code(s): K56.609 - Unspecified intestinal obstruction, unspecified as to partial versus complete obstruction Status: Acute Assessment and Plan: exam benign, SBS reviewed, will clamp NG and hopefully remove later today, once NG out will start clear and ADAT, encourage OOB Subjective Subjective Date/Time Seen: 05/18/22 08:53 feels better, multiple BMs yesterday, no further abd pain, N/V Review of Systems Review of Systems: All systems reviewed & are unremarkable except as noted in HPI and below Exam Const: General: cooperative, comfortable and no acute distress Resp: Auscultation: clear to auscultation bilaterally Cardio: Rate: regular rate Rhythm: regular rhythm GI: Inspection: normal to inspection and non-distended GI Palp: No abdominal tenderness, Yes Soft to palpation, No Tenderness to palpation present (GI), No Guarding due to palpation present (GI) and No Rigid due to palpation Objective Data Vital Signs Vital Signs: Vital Signs - 24 hr 05/17/22 21:50 05/18/22 06:00 Temperature 37.0 C 37.0 C Pulse Rate 54 L 63 Respiratory Rate 16 22 H Blood Pressure 131/77 140/95 H Pulse Oximetry 94 97 Intake/Output Intake/Output: Intake & Output 05/15/22 05/16/22 05/17/22 05/18/22 23:59 23:59 23:59 23:59 Intake Total 2000 Output Total 0 450 Balance 2000 -450 Meds/Results Medications: Active Medications Generic Name Dose Route Start Last Admin Trade Name Freq PRN Reason Stop Dose Admin Camphor/Menthol/Phenol 1 applic 05/18/22 01:48 Alum/Camp/Menth/Phenol/Salicy (Carmex) 7.5 Gm Jar TOPICAL PRN PRN dry lips Dextrose 12.5 gm 05/17/22 14:13 Dextrose 50% 25 Gm/50 Ml Syringe IV PUSH PRN PRN Hypoglycemia Protocol Enoxaparin Sodium 120 mg 05/17/22 21:00 05/18/22 08:34 Enoxaparin 120 Mg/0.8 Ml Syringe SUB-Q 120 mg Q12HR PETER Administration Glucagon 1 mg 05/17/22 14:13 Glucagon For Inj 1 Mg Vial IM PRN PRN Hypoglycemia Protocol Glucose 15 gm 05/17/22 14:13 Glucose Oral Gel 15 Gm Of Glucse In 37.5 Gm Tube PO PRN PRN Hypoglycemia Protocol Hydromorphone HCl 1 mg 05/17/22 10:08 05/18/22 01:44 Hydromorphone Hcl Inj (*Crx) 1 Mg/Ml Syr IV PUSH 1 mg Q2HR PRN Administration Pain Rated 7-10 Sodium Chloride 1,000 mls @ 125 mls/hr 05/17/22 06:50 05/18/22 01:44 Normal Saline Iv IV CONT 125 mls/hr .Q8H PETER Administration Dextrose 1,000 mls @ 100 mls/hr 05/17/22 14:13 Dextrose 5% 1,000 Ml IVPB PRN PRN Hypoglycemia Protocol Insulin Aspart 2 - 5 units 05/17/22 17:00 05/17/22 18:37 Insulin Aspart (*Bkc) 100 Units/Ml SUB-Q Not Given TIDWM PETER Protocol Ondansetron HCl 4 mg 05/17/22 06:50 05/17/22 17:36 Ondansetron Inj 4 Mg/2 Ml Vial IV PUSH 4 mg Q4H PRN Administration Nausea Pantoprazole Sodium 40 mg 05/17/22 18:00 05/17/22 18:06 Pantoprazole Sodium Iv 40 Mg Vial IV PUSH 40 mg QPM PETER Administration Radiology Results: ITS Impressions Abdomen X-Ray 05/17/22 07:36 IMPRESSION: 1. Nasogastric tube in the stomach. Abdomen/Pelvis CT 05/17/22 08:30 IMPRESSION: Mild distention but no abnormal dilatation of the jejunum compared to the ilium seminal consider enteritis, mild adynamic ileus, partial small bowel obstruction. Small bowel series may be of benefit if clinically appropriate Normal appendix Postoperative change of the stomach Small sliding hiatal hernia Status post cholecystectomy Status post ventral abdominal wall hernia repair 2.6 cm right renal cyst Mild mid and lower lateral right renal scarring Multiple calcifications at the lower pole of the left kidney Severe bilateral hip osteoarthritis Small Bowel X-Ray 05/17/22 17:16 IMPRESSION: 1. Dilated small bowel with delayed transit, consistent with ileus versus partial ob
[2022-05-18 12:13] LABS: Glucose Point of Care 113 mg/dl (65-105)
--- NOTE | 2022-05-18 13:25 | PM.IMPN ---
Progress Note: A&P Assessment and Plan (1) Small bowel obstruction: Code(s): K56.609 - Unspecified intestinal obstruction, unspecified as to partial versus complete obstruction Status: Acute Assessment and Plan: ED-[facility] narrative: Patient presents emergency department from home for abdominal pain.? Patient states symptoms began approximately 2 hours ago.? The pain is located across the upper abdomen described as sharp and stabbing in nature has been associate with nausea and vomiting.? Patient states she not taking thing for the symptoms at home states she does have a history of a bowel obstruction she denies any fevers or chills chest pain shortness of breath diarrhea or any other symptoms 05/18/2022 interval history: patient is a 56-year-old morbidly obese female with past medical history gastric sleeve, vental hernia and SBO, presented with c/o abdominal pain, N/V, symptoms started 2 hrs prior to coming to the ER, patient stated she had loose BM before this started, , CT scan of abdomen showed: ?Mild distention but no abnormal dilatation of the jejunum compared to the ilium seminal consider enteritis, mild adynamic ileus, partial small bowel obstruction. patient was seen by surgery service and ordered small bowel series which may be of benefit, it showed judith and partial bowl obstruction,, patient is placed on NG tube to decompress abdomen, today patient still C/O abdominal pain, not passing any gas, patient with hx of A. Fib rate is controlled, and anticoagulated with Lovenox, will keep patient NPO with NG tube, and conservatively monitor, patient will be seen by surgery services and further recommendation to follow. (2) Nausea and vomiting: Code(s): R11.2 - Nausea with vomiting, unspecified Status: Acute Assessment and Plan: most likely secondary to small-bowel obstruction. (3) Afib: Code(s): I48.91 - Unspecified atrial fibrillation Status: Acute Assessment and Plan: patient with atrial fibrillation NPO, rate is controlled patient anticoagulated with Lovenox 120 mg b.i.d. will continue to monitor (4) Diabetes: Code(s): E11.9 - Type 2 diabetes mellitus without complications Status: Acute Assessment and Plan: patient is NPO, Will start the patient on D5 normal saline and monitor with sliding scale, Subjective Date/time seen: 05/18/22 13:25 05/18/2022 interval history: patient is a 56-year-old morbidly obese female with past medical history gastric sleeve, vental hernia and SBO, presented with c/o abdominal pain, N/V, symptoms started 2 hrs prior to coming to the ER, patient stated she had loose BM before this started, , CT scan of abdomen showed: ?Mild distention but no abnormal dilatation of the jejunum compared to the ilium seminal consider enteritis, mild adynamic ileus, partial small bowel obstruction. patient was seen by surgery service and ordered small bowel series which may be of benefit, it showed judith and partial bowl obstruction,, patient is placed on NG tube to decompress abdomen, today patient still C/O abdominal pain, not passing any gas, patient with hx of A. Fib rate is controlled, and anticoagulated with Lovenox, will keep patient NPO with NG tube, and conservatively monitor, patient will be seen by surgery services and further recommendation to follow. Review of Systems Constitutional: Constitutional: Reports as per HPI, Denies anorexia, Denies chills, Denies fatigue, Denies fever(s), Denies lethargy, Denies malaise, Denies poor appetite, Denies weakness, Denies weight gain and Denies weight loss Exam Narrative: morbidly obese Patient is comfortable, NAD HEENT: eyes are clear and none icteric LUNGS:CTA HEART: RR S1S2 ABD: obese bowel sounds active Lower extremities: no edema SKIN: nonjaundiced Neuro: grossly intact. Objective Data Vital Signs Vital Signs: Vital Signs - 24 hr 05/17/22 21:50
[2022-05-18 13:43] VITALS: BP 145/80; PULSE 62; RESP 16; TEMP 35.8; O2SAT 99
[2022-05-18 17:56] LABS: Glucose Point of Care 69 mg/dl (65-105)
[2022-05-18] MEDS: PANTOPRAZOLE SODIUM IV 40 MG VIAL IV PUSH (18:10)
[2022-05-18] MEDS: BACLOFEN 10 MG TABLET PO (20:03)
[2022-05-18 20:04] VITALS: PULSE 62
[2022-05-18] MEDS: APIXABAN 5 MG TABLET PO (20:04)
[2022-05-18] MEDS: DRONEDARONE HCL 400 MG TABLET PO (20:04)
[2022-05-18] MEDS: buPROPion HCL 75 MG TABLET PO (20:04)
[2022-05-18] MEDS: METOPROLOL TARTRATE 50 MG TAB PO (20:04)
[2022-05-18] MEDS: HYDROcodone/acetaminophen (*CRX) 10-325 MG TABLET 1 TAB BY MOUTH (20:12)
[2022-05-18 20:26] VITALS: BP 149/79; PULSE 67; RESP 20; TEMP 36.9; O2SAT 100
[2022-05-18 22:55] VITALS: PULSE 56; O2SAT 98
[2022-05-18 23:02] VITALS: PULSE 56; RESP 12; O2SAT 98
[2022-05-18 23:15] LABS: Glucose Point of Care 95 mg/dl (65-105)
[2022-05-19 02:15] VITALS: PULSE 60; RESP 11; O2SAT 99
[2022-05-19 04:55] VITALS: BP 145/70; PULSE 50; RESP 20; TEMP 36.7; O2SAT 98
[2022-05-19 05:26] LABS: Hematocrit 36.3 % (37.0-47.0); Hemoglobin 10.3 g/dL (12.0-15.0); Mean Corpuscular HGB Conc 28.4 g/dl (32-36); Mean Corpuscular Hemoglobin 27.2 pg (26-34); Mean Corpuscular Volume 95.8 fl (80-100); Mean Platelet Volume 11.9 fl (7.4-10.4); Platelet Count Result 182 k/mm3 (150-375); Red Blood Count 3.79 M/mm3 (4.2-5.4); Red Cell Distribution Width 15.7 % (11.5-14.5); White Blood Count 7.7 K/mm3 (4.5-10.0)
[2022-05-19 05:40] LABS: Anion Gap 7 mmol/L (8-16); Blood Urea Nitrogen 10 mg/dL (7-17); Calcium 8.2 mg/dL (8.4-10.2); Carbon Dioxide 24 mmol/L (22-30); Chloride 110 mmol/L (98-107); Estimated CRCL calculation 86 ml/min; Estimated Glomerular Filt Rate > 60; Glucose 90 mg/dL (65-110); Magnesium 2.1 mg/dL (1.6-2.3); Sodium 141 mmol/L (137-145)
[2022-05-19] MEDS: FUROSEMIDE 80 MG TABLET PO (08:51)
[2022-05-19 08:52] VITALS: PULSE 68
[2022-05-19] MEDS: METOPROLOL TARTRATE 50 MG TAB PO (08:52)
[2022-05-19] MEDS: MULTIVITAMINS THERAPEUTIC TAB (*BKC) 1 TABLET PO (08:52)
[2022-05-19] MEDS: GABAPENTIN 300 MG CAPSULE PO (08:52)
[2022-05-19 08:53] VITALS: PULSE 68
[2022-05-19] MEDS: buPROPion HCL 75 MG TABLET PO (08:53)
[2022-05-19] MEDS: APIXABAN 5 MG TABLET PO (08:53)
[2022-05-19] MEDS: DRONEDARONE HCL 400 MG TABLET PO (08:53)
[2022-05-19] MEDS: POTASSIUM CHLORIDE 10 MEQ TABLET.ER PO (08:53)
[2022-05-19 08:57] LABS: Glucose Point of Care 106 mg/dl (65-105)
--- NOTE | 2022-05-19 11:10 | PM.PNGS ---
Progress Note: A&P Assessment and Plan (1) Small bowel obstruction: Code(s): K56.609 - Unspecified intestinal obstruction, unspecified as to partial versus complete obstruction Status: Acute Assessment and Plan: resolved, will advance to heart healthy diet, if ruth food ok to dc later today from surgical standpoint Subjective Subjective Date/Time Seen: 05/19/22 11:10 feels good, ruth full liquids, +bowel fxn Review of Systems Review of Systems: All systems reviewed & are unremarkable except as noted in HPI and below Exam Const: General: cooperative, comfortable and no acute distress Resp: Auscultation: clear to auscultation bilaterally Cardio: Rate: regular rate Rhythm: regular rhythm GI: Inspection: normal to inspection GI Palp: No abdominal tenderness, Yes Soft to palpation, No Tenderness to palpation present (GI), No Guarding due to palpation present (GI) and No Rigid due to palpation Objective Data Vital Signs Vital Signs: Vital Signs - 24 hr 05/18/22 13:43 05/18/22 20:04 05/18/22 20:04 Temperature 35.8 C L Pulse Rate 62 62 62 Respiratory Rate 16 Blood Pressure 145/80 H Pulse Oximetry 99 Oxygen Delivery Oxygen Flow Rate 05/18/22 20:26 05/18/22 22:55 05/18/22 23:02 Temperature 36.9 C Pulse Rate 67 56 L 56 L Respiratory Rate 20 12 Blood Pressure 149/79 H Pulse Oximetry 100 98 98 Oxygen Delivery Autopap Autopap Oxygen Flow Rate 2 05/19/22 02:15 05/19/22 04:55 05/19/22 08:52 Temperature 36.7 C Pulse Rate 60 50 L 68 Respiratory Rate 11 L 20 Blood Pressure 145/70 H Pulse Oximetry 99 98 Oxygen Delivery Autopap Oxygen Flow Rate 05/19/22 08:53 Temperature Pulse Rate 68 Respiratory Rate Blood Pressure Pulse Oximetry Oxygen Delivery Oxygen Flow Rate Intake/Output Intake/Output: Intake & Output 05/16/22 05/17/22 05/18/22 05/19/22 23:59 23:59 23:59 23:59 Intake Total 1999 3040 1060 Output Total 0 450 Balance 1999 2590 1060 Meds/Results Medications: Active Medications Generic Name Dose Route Start Last Admin Trade Name Freq PRN Reason Stop Dose Admin Hydrocodone Bitart/Acetaminophen 1 tab 05/18/22 13:57 05/18/22 20:12 Hydrocodone/Acetaminophen (*Crx) 10-325 Mg Tablet BY MOUTH 1 tab Q8H PRN Administration Pain Apixaban 5 mg 05/18/22 21:00 05/19/22 08:53 Apixaban 5 Mg Tablet PO 5 mg Q12HR PETER Administration Baclofen 10 mg 05/18/22 21:00 05/18/22 20:03 Baclofen 10 Mg Tablet PO 10 mg HS PETER Administration Bupropion HCl 75 mg 05/18/22 21:00 05/19/22 08:53 Bupropion Hcl 75 Mg Tablet PO 75 mg Q12HR PETER Administration Camphor/Menthol/Phenol 1 applic 05/18/22 01:48 Alum/Camp/Menth/Phenol/Salicy (Carmex) 7.5 Gm Jar TOPICAL PRN PRN dry lips Cyclobenzaprine HCl 10 mg 05/18/22 13:57 Cyclobenzaprine Hcl 10 Mg Tablet PO TID PRN muscle spasm Dextrose 12.5 gm 05/17/22 14:13 Dextrose 50% 25 Gm/50 Ml Syringe IV PUSH PRN PRN Hypoglycemia Protocol Dronedarone 400 mg 05/18/22 21:00 05/19/22 08:53 Dronedarone Hcl 400 Mg Tablet PO 400 mg Q12HR PETER Administration Fluticasone Propionate 2 spray 05/18/22 13:57 Fluticasone Propionate 0.05% Na Spr 16 Gm Btl (*Bkc) NASAL DAILY PRN Nasal Congestion Furosemide 80 mg 05/19/22 09:00 05/19/22 08:51 Furosemide 80 Mg Tablet PO 80 mg DAILY PETER Administration Gabapentin 300 mg 05/19/22 09:00 05/19/22 08:52 Gabapentin 300 Mg Capsule PO 300 mg BID PETER Administration Glucagon 1 mg 05/17/22 14:13 Glucagon For Inj 1 Mg Vial IM PRN PRN Hypoglycemia Protocol Glucose 15 gm 05/17/22 14:13 Glucose Oral Gel 15 Gm Of Glucse In 37.5 Gm Tube PO PRN PRN Hypoglycemia Protocol Hydromorphone HCl 1 mg 05/17/22 10:08 05/18/22 10:53 Hydromorphone Hcl Inj (*Crx) 1 Mg/Ml Syr IV PUSH 1 mg Q2HR PRN Admin
[2022-05-19 11:55] LABS: Glucose Point of Care 84 mg/dl (65-105)
--- NOTE | 2022-05-19 13:39 | PM.DS ---
DS: Admitting Diagnosis Discharge Date 05/19/2022 Admitting Diagnosis abdominal pain DS: Discharge Diagnosis Discharge Diagnosis (1) Small bowel obstruction: Code(s): K56.609 - Unspecified intestinal obstruction, unspecified as to partial versus complete obstruction Status: Acute Assessment and Plan: ED-[facility] narrative: Patient presents emergency department from home for abdominal pain.? Patient states symptoms began approximately 2 hours ago.? The pain is located across the upper abdomen described as sharp and stabbing in nature has been associate with nausea and vomiting.? Patient states she not taking thing for the symptoms at home states she does have a history of a bowel obstruction she denies any fevers or chills chest pain shortness of breath diarrhea or any other symptoms 05/18/2022 interval history: patient is a 56-year-old morbidly obese female with past medical history gastric sleeve, vental hernia and SBO, presented with c/o abdominal pain, N/V, symptoms started 2 hrs prior to coming to the ER, patient stated she had loose BM before this started, , CT scan of abdomen showed: ?Mild distention but no abnormal dilatation of the jejunum compared to the ilium seminal consider enteritis, mild adynamic ileus, partial small bowel obstruction. patient was seen by surgery service and ordered small bowel series which may be of benefit, it showed judith and partial bowl obstruction,, patient is placed on NG tube to decompress abdomen, today patient still C/O abdominal pain, not passing any gas, patient with hx of A. Fib rate is controlled, and anticoagulated with Lovenox, will keep patient NPO with NG tube, and conservatively monitor, patient will be seen by surgery services and further recommendation to follow. (2) Nausea and vomiting: Code(s): R11.2 - Nausea with vomiting, unspecified Status: Acute Assessment and Plan: most likely secondary to small-bowel obstruction. (3) Afib: Code(s): I48.91 - Unspecified atrial fibrillation Status: Acute Assessment and Plan: patient with atrial fibrillation NPO, rate is controlled patient anticoagulated with Lovenox 120 mg b.i.d. will continue to monitor (4) Diabetes: Code(s): E11.9 - Type 2 diabetes mellitus without complications Status: Acute Assessment and Plan: patient is NPO, Will start the patient on D5 normal saline and monitor with sliding scale, DS: Summary Hospital Course Reason for hospitalization: ED-HPI narrative: Patient presents emergency department from home for abdominal pain.? Patient states symptoms began approximately 2 hours ago.? The pain is located across the upper abdomen described as sharp and stabbing in nature has been associate with nausea and vomiting.? Patient states she not taking thing for the symptoms at home states she does have a history of a bowel obstruction she denies any fevers or chills chest pain shortness of breath diarrhea or any other symptoms patient is a 56-year-old? morbidly obese female with past medical history gastric sleeve, vental hernia and SBO, presented with c/o abdominal pain, N/V, symptoms started 2 hrs prior to coming to the ER, patient stats she is not passing gas no BM, CT scan of abdomen showed:??Mild distention but no abnormal dilatation of the jejunum compared to the ilium seminal consider enteritis, mild adynamic ileus, partial small bowel obstruction. Small bowel series may be of benefit if clinically appropriate, patient is placed on NG tube to decopress abdomen, will keep patient and conservatively monitor, patient will be seen by surgery services and further recommendation to follow. Hospital Course: patient is a 56-year-old? morbidly obese female with past medical history gastric sleeve, vental hernia and SBO, presented with c/o abdominal pain, N/V, symptoms started 2 hrs prior to coming to the ER, patient stated she small
== END 2022-05-19 14:25 | disposition home or self-care (01) ==
LOC: ANHED 07:48 → ANH3MED 12:55
PROVIDERS: Emergency Medicine; Admitting Provider Internal Medicine; Emergency Provider Emergency Medicine; PCP Family Medicine; Visit Provider Family Medicine
DX: K56.609 Unspecified intestinal obstruction, unspecified as to partial versus complete obstruction (principal); K44.9 Diaphragmatic hernia without obstruction or gangrene; N28.1 Cyst of kidney, acquired; I48.91 Unspecified atrial fibrillation; I11.0 Hypertensive heart disease with heart failure; I50.9 Heart failure, unspecified; M16.0 Bilateral primary osteoarthritis of hip; E11.9 Type 2 diabetes mellitus without complications; R01.1 Cardiac murmur, unspecified; N28.89 Other specified disorders of kidney and ureter; G47.30 Sleep apnea, unspecified; E66.01 Morbid (severe) obesity due to excess calories; Z68.44 Body mass index [BMI] 60.0-69.9, adult; Z93.4 Other artificial openings of gastrointestinal tract status; Z90.49 Acquired absence of other specified parts of digestive tract; Z98.84 Bariatric surgery status; Z86.718 Personal history of other venous thrombosis and embolism; Z79.01 Long term (current) use of anticoagulants; Z79.51 Long term (current) use of inhaled steroids; Z79.891 Long term (current) use of opiate analgesic; F17.210 Nicotine dependence, cigarettes, uncomplicated; Z79.899 Other long term (current) drug therapy; Z82.49 Family history of ischemic heart disease and other diseases of the circulatory system; Z82.61 Family history of arthritis
CPT/HCPCS: 36415; 74177; 74250; 80048; 80053; 81001; 82948; 83036; 83605; 83690; 83735; 85025; 85027; 87077; 87086; 87186; 96361; 96372; 96374; 96375; 96376; 99285; A9270; C9113; G0378; G0379; J1170; J1650; J2405; J7030; Q9967

== ENCOUNTER 2023-01-01 21:59 | Observation (INO) | payer OTHER, SELFPAY ==
--- NOTE | ~2023-01-01 | XR_ITS ---
EXAMINATION: XR sm bowel follow through DATE: 01/02/2023 12:32 INDICATION: Small bowel obstruction. TECHNIQUE: Oral contrast was administered, and a time course of radiographs of the abdomen was obtain ed. Fluoroscopy of the small bowel was performed. Fluoroscopy exposure time was 0.1 minutes. The tota l number of images was 7. COMPARISON: CT abdomen and pelvis 01/01/2023 FINDINGS: Surgical clips in the right upper quadrant are likely from cholecystectomy. There are changes of vent ral hernia repair. There are mildly dilated loops of jejunum. No transition point is identified. Knox sit time from the stomach to proximal colon was approximately 15 minutes. IMPRESSION: 1. Mildly dilated loops of jejunum, consistent with adynamic ileus versus low-grade partial small bow el obstruction. Reviewed, dictated and finalized at location A. IMPRESSION: 1. Mildly dilated loops of jejunum, consistent with adynamic ileus versus low-g rade partial small bowel obstruction.
--- NOTE | ~2023-01-01 | CT_ITS ---
CT of the Abdomen and Pelvis: Indication: Small bowel obstruction Technique: 2.5 mm axial scans were obtained through the abdomen and pelvis following intravenous adm inistration of 100 cc of Omnipaque 350. Dose reduction technique was used on this scan by utilizing a utomated exposure control and iterative reconstruction technique. The dose-length product (DLP) was 1 556.22 mGy-cm. COMPARISON: 05/17/2022 Findings: Scans through the lung bases demonstrate stable right lower lobe pulmonary nodule measurin g 1.4 cm in diameter (axial image 10).. The liver, spleen, pancreas, adrenals and right kidney are within normal limits. Cholecystectomy clip s are present. Left kidney is relatively atrophic, with stable coarse parenchymal calcifications of t he lower pole. No evidence of aortic aneurysm. No lymphadenopathy. There are a few mildly distended small bowel loops in the midabdomen with probable transition point n oted (axial images 113-119).. There is no evidence to suggest acute appendicitis. There is evidence o f prior bariatric surgery. Probable prior herniorrhaphy. Images through the pelvis were performed. Urinary bladder unremarkable. No pelvic mass seen. No ascit es. Impression: Several mildly distended small bowel loops with probable transition point. Findings suggest early or partial small bowel obstruction. Postsurgical changes, as noted above. Stable 1.4 cm right lower lobe pulmonary nodule. Reviewed, dictated and finalized at [facility]. Impression: Several mildly distended small bowel loops with probable transition point. Find ings suggest early or partial small bowel obstruction. Postsurgical changes, as noted above. Stable 1.4 cm right lower lobe pulmonary nodule.
--- NOTE | ~2023-01-01 | XR_ITS ---
Portable chest x-ray Comparison: 07/27/2019 Clinical History: Epigastric pain Findings: There is mild central congestive change. No consolidation or pleural effusion. Cardiomedi astinal silhouette is stable. Bones and soft tissues are unremarkable. Impression: Mild central pulmonary venous congestive changes. Reviewed, dictated and finalized at [facility]. Impression: Mild central pulmonary venous congestive changes.
[2023-01-01 22:09] VITALS: BP 143/79; PULSE 55; RESP 14; TEMP 36.7; O2SAT 99
--- NOTE | 2023-01-01 22:33 | ECG_ITS ---
Measurements Intervals [place] Rate: 46 P: 49 IA: 198 QRS: -16 QRSD: 106 T: 64 QT: 443 QTc: 391 Interpretive Statements SINUS BRADYCARDIA WITH SINUS ARRHYTHMIA DELAYED PRECORDIAL R/S TRANSITION LOW QRS VOLTAGE IN PRECORDIAL LEADS NONSPECIFIC T-WAVE ABNORMALITY- ANTEROLAT/HIGH LAT LEADS BASELINE ARTIFACT- V1 ABNORMAL ECG COMPARED TO ECG 04/27/2019 13:11:08 SINUS ARRHYTHMIA NOW PRESENT Electronically Signed On 01-02-2023 6:21:49 CDT by Stewart Leung D.O.
[2023-01-01 22:48] LABS: Basophils Absolute Auto 0.1 K/mm3 (0.0-0.1); Basophils Percent Auto 0.5 % (0.2-1.2); Eosinophils Absolute Auto 0.1 K/mm3 (0-0.3); Eosinophils Percent Auto 0.7 % (0-4.4); Hematocrit 37.9 % (37.0-47.0); Hemoglobin 11.7 g/dL (12.0-15.0); Immature Granulocyte Absolute 0.03 K/mm3 (0.00-0.031); Immature Granulocyte Percent A 0.3 % (0-0.5); Lymphocytes Absolute Auto 1.69 K/mm3 (0.9-3.2); Lymphocytes Percent Auto 16.4 % (18.3-44.2); Mean Corpuscular HGB Conc 30.9 g/dl (32-36); Mean Corpuscular Hemoglobin 27.7 pg (26-34); Mean Corpuscular Volume 89.8 fl (80-100); Mean Platelet Volume 11.7 fl (7.4-10.4); Monocytes Absolute Auto 0.6 K/mm3 (0.1-0.6); Monocytes Percent Auto 5.9 % (2.6-8.5); Neutrophils Absolute Auto 7.9 K/mm3 (1.3-6.7); Neutrophils Percent Auto 76.2 % (45.5-73.1); Platelet Count Result 252 k/mm3 (150-375); Red Blood Count 4.22 M/mm3 (4.2-5.4); Red Cell Distribution Width 15.4 % (11.5-14.5); White Blood Count 10.3 K/mm3 (4.5-10.0)
[2023-01-01] MEDS: FAMOTIDINE 20 MG/2 ML VIAL IV PUSH (22:49)
[2023-01-01] MEDS: SODIUM CHLORIDE 0.9% IV 1,000 ML 999 ML IV CONT (22:50)
[2023-01-01 23:04] LABS: Lactic Acid Reflex 1.5 mmol/L (0.7-2.0)
[2023-01-01 23:08] LABS: Alanine Aminotransferase 22 U/L (6-35); Albumin Level 4.1 g/dL (3.5-5.1); Alkaline Phosphatase 109 U/L (38-126); Anion Gap 3 mmol/L (8-16); Aspartate Amino Transferase 24 U/L (14-36); Bilirubin,Total 0.4 mg/dL (0.2-1.3); Blood Urea Nitrogen 20 mg/dL (7-17); Calcium 8.6 mg/dL (8.4-10.2); Carbon Dioxide 33 mmol/L (22-30); Chloride 105 mmol/L (98-107); Estimated CRCL calculation 82 ml/min; Estimated Glomerular Filt Rate 56; Glucose 145 mg/dL (65-110); Lipase 81 U/L (23-300); Magnesium 2.2 mg/dL (1.6-2.3); Potassium 4.1 mmol/L (3.4-5.0); Sodium 141 mmol/L (137-145)
[2023-01-01 23:12] LABS: NT Pro B Type Natriuretic Pept 103 pg/mL (19.9-100)
[2023-01-01 23:19] LABS: Troponin I < 0.012 ng/mL (0.000-0.034)
[2023-01-02 01:02] LABS: Appearance Urine Clear (Clear); Bacteria Urine 4+ /hpf; Bilirubin Urine Negative (Negative); Blood Urine Negative (Negative); Color Urine Yellow (Yellow); Glucose Urine UA Negative (Negative); Ketones Urine Negative (Negative); Leukocyte Esterase Ur 2+ LEU/UL (Negative); Nitrate Urine Negative (Negative); Non Pathogenic Casts 0-2; Protein Urine Negative (Negative); RBC Urine 0-2 /hpf (0-2); Squamous Epithelial Cell Urine None seen /hpf (Few); WBC Urine 51-100 /hpf
[2023-01-02 01:42] LABS: Add Urine Microscopic? YES
[2023-01-02 02:26] LABS: Troponin I 0.013 ng/mL (0.000-0.034)
--- NOTE | 2023-01-02 02:48 | PM.IMHP ---
H&P: HPI History of Present Illness Date/Time: 01/02/23 02:48 Chief Complaint: abdominal pain Narrative: This is a 57-year-old female with past medical history significant for morbid obesity, atrial fibrillation, rate controlled anticoagulated, DVT, diabetes, hypertension, sleep apnea, x6, hernia repair, sleeve gastrectomy. patient presents to the emergency room due to abdominal pain, nausea and vomiting, denies hematemesis, coffee-ground emesis, bright red blood per rectum, melena, patient had been in her usual state of health up until this point. Preliminary workup was significant for CT of abdomen and pelvis with small-bowel obstruction, As per preliminary report patient is been admitted for further evaluation management and treatment. CT of the Abdomen and Pelvis: Indication: Small bowel obstruction Technique:? 2.5 mm axial scans were obtained through the abdomen and pelvis following intravenous administration of 100 cc of Omnipaque 350. Dose reduction technique was used on this scan by utilizing automated exposure control and iterative reconstruction technique. The dose-length product (DLP) was 1556.22 mGy-cm. COMPARISON: 05/17/2022 Findings:? Scans through the lung bases demonstrate stable right lower lobe pulmonary nodule measuring 1.4 cm in diameter (axial image 10).. The liver, spleen, pancreas, adrenals and right kidney are within normal limits. Cholecystectomy clips are present. Left kidney is relatively atrophic, with stable coarse parenchymal calcifications of the lower pole. No evidence of aortic aneurysm.? No lymphadenopathy. There are a few mildly distended small bowel loops in the midabdomen with probable transition point noted (axial images 113-119).. There is no evidence to suggest acute appendicitis. There is evidence of prior bariatric surgery. Probable prior herniorrhaphy. Images through the pelvis were performed. Urinary bladder unremarkable. No pelvic mass seen. No ascites. Impression: Several mildly distended small bowel loops with probable transition point. Findings suggest early or partial small bowel obstruction. Postsurgical changes, as noted above. Stable 1.4 cm right lower lobe pulmonary nodule. Review of Systems Review of Systems: Abdominal pain, nausea, vomiting. Constitutional: Constitutional: Denies chills, Denies fatigue, Denies fever(s), Denies malaise, Denies night sweats and Denies weakness Eyes: Eyes: Denies change in vision ENT: Denies dysphagia and Denies odynophagia Cardiovascular: Cardiovascular: Denies chest pain, Denies irregular heart rhythm, Denies lightheadedness, Denies radiating jaw, neck or arm pain and Denies palpitations Respiratory: Respiratory: Denies chest congestion, Denies cough, Denies excessive phlegm production, Denies dyspnea and Denies wheezing Gastrointestinal: Gastrointestinal: Reports abdominal pain, Denies melena, Denies hematochezia, Denies coffee ground emesis, Reports GI cramping, Denies dyspepsia, Denies diarrhea, Reports nausea and Reports vomiting Genitourinary: Genitourinary: Denies dysuria Musculoskeletal: Musculoskeletal: Reports no additional musculoskeletal complaints and Reports as per HPI Integumentary/Breasts: Skin/Breast: Denies rash Neurologic: Denies focal weakness and Denies Sensory deficit (Neuro) Psychiatric: Psychiatric: Reports no additional psychiatric complaints and Reports as per HPI Endocrine: Endocrine: Denies cold intolerance, Denies flushing, Denies heat intolerance, Denies polyphagia, Denies polydipsia and Denies palpitations Hematologic/Lymphatic: Hematologic/Lymphatic: Reports no additional hematologic/lymphatic complaints and Reports as per HPI Allergic/Immunologic: Allergic/Immunologic: Reports no additional allergic/immunologic complaints and Reports as per HPI PMFSH Past Medical History Medical History Afib Arthritis CHF (congestive hea
--- NOTE | 2023-01-02 02:52 | ED.GENADULT ---
HPI - General Adult General Chief complaint: Abdominal Pain Stated complaint: abdominal pain Time Seen by Provider: 01/01/23 22:18 History of Present Illness HPI narrative: 57-year-old female with history of small-bowel obstruction presenting ED with chief complaint of abdominal pain nausea and vomiting. Patient said that the pain started about 2 hours prior to arrival. Is primarily in the epigastric area, nonradiating 10 out 10 intensity and coming in waves. It feels like when she has a small-bowel obstruction in the past. No exacerbating alleviating factors. She has had 4 episodes of nausea and vomiting. Last bowel movement was yesterday. She has not passed gas since this morning. Patient has history of 6 C sections. Denies other complaints this time. Related Data Home Medications Medication Instructions Recorded Confirmed baclofen 10 mg tablet 10 mg PO HS 07/25/20 05/17/22 dronedarone 400 mg tablet (Multaq) 400 mg PO BID 07/25/20 05/17/22 fluticasone propionate 50 2 spray intranasal DAILY PRN Nasal 07/25/20 05/17/22 mcg/actuation nasal Congestion spray,suspension furosemide 80 mg tablet 80 mg PO DAILY 07/25/20 05/17/22 gabapentin 300 mg capsule 300 mg PO BID PRN Pain 07/25/20 05/17/22 hydrocodone 10 mg-acetaminophen See Rx Instructions .Route 07/25/20 05/17/22 325 mg tablet .COMPLEX PRN Pain metoprolol tartrate 50 mg tablet 50 mg PO BID 07/25/20 05/17/22 multivitamin (Daily-Elaine tablet) 1 tablet PO DAILY 07/25/20 05/17/22 apixaban 5 mg tablet (Eliquis) 5 mg PO BID 05/17/22 05/17/22 bupropion HCl 75 mg tablet 75 mg PO DAILY 05/17/22 05/17/22 potassium chloride 10 mEq 10 meq PO DAILY 05/17/22 05/17/22 tablet,extended release(part/cryst) (Klor-Con M) Allergies Allergy/AdvReac Type Severity Reaction Status Date / Time morphine Allergy Unknown Hives Verified 05/17/22 02:39 Penicillins Allergy Unknown Hives Verified 05/17/22 02:39 [facility] Past Medical History Medical History (Updated 01/02/23 @ 02:59 by Zoran Guallpa MD) Afib Arthritis CHF (congestive heart failure) Diabetes DVT (deep venous thrombosis) HTN (hypertension) Sleep apnea in adult Surgical History Surgical History H/O section History of hernia repair History of sleeve gastrectomy Hx of tonsillectomy as child Family History Family History Father Hypertension Cerebrovascular accident Other Family history of arthritis Social History Social History Smoking status: Current some day smoker Tobacco type: cigarettes Alcohol intake: former Substance use: never Living arrangements: with family Gender identity (if verbalized by the patient): Female Spiritual care concerns: No Exam Narrative: APPEARANCE: Appears uncomfortable, BMI of 72 Head: atraumatic. EYES: EOMI, NOSE: Atraumatic NECK: Trachea midline RESPIRATORY: No increased rate of breathing, clear to auscultation CARDIOVASCULAR: RRR, ABDOMINAL: obese, distended, diffusely tender, exam is difficult due to body habitus MUSCULOSKELETAl: No obvious deformities NEURO: Alert. Moving 4/4 extremities SKIN:: Warm, dry. Normal color PSYCHIATRIC: Normal affect Course Vital Signs Vital signs: Vital Signs Temperature 98.0 F 01/01/23 22:09 Pulse Rate 55 L 01/01/23 22:09 Respiratory Rate 14 01/01/23 22:09 Blood Pressure 143/79 H 01/01/23 22:09 Pulse Oximetry 99 01/01/23 22:09 Oxygen Delivery Room Air 01/01/23 22:09 Temperature 98.0 F 01/01/23 22:09 Pulse Rate 55 L 01/01/23 22:09 Respiratory Rate 14 01/01/23 22:09 Blood Pressure 143/79 H 01/01/23 22:09 Pulse Oximetry 99 01/01/23 22:09 Oxygen Delivery Room Air 01/01/23 22:09 Medical Decision Making MDM Narrative Medical decision making narrative: -Presentation: 57-year-old fema
[2023-01-02 04:31] VITALS: BP 142/74; PULSE 57; RESP 17; O2SAT 98
[2023-01-02 04:37] LABS: Glucose Point of Care 111 mg/dl (65-105)
--- NOTE | 2023-01-02 04:55 | ADMGEN ---
This patient, Isabela Moore, was admitted to Medical Room 250-01. Patient/family oriented to hospital policies and general routines including ID bracelet, bed and alarms, visiting hours, pain management, procedures, bathroom and other care routines, personal items, smoking policy, room service/diet, and visiting hours. Information on how to activate the Rapid Response Team has been discussed. Patient/Family are encouraged to report perceived risks to care and to ask questions if they do not understand what they are told or what they should do.
[2023-01-02 05:00] VITALS: BMI 71.1
[2023-01-02 05:01] VITALS: BP 114/50; PULSE 40; RESP 17; TEMP 36.3; O2SAT 98
[2023-01-02] MEDS: DEXTROSE 5%/0.45% SOD CHL 1,000 ML 100 ML IV CONT (06:26)
--- NOTE | 2023-01-02 09:44 | PM.IMPN ---
Progress Note: A&P Assessment and Plan (1) SBO (small bowel obstruction): Code(s): K56.609 - Unspecified intestinal obstruction, unspecified as to partial versus complete obstruction Status: Acute Assessment and Plan: Appreciate general surgery consultation Passing stool, ADAT (2) Nausea and vomiting: Code(s): R11.2 - Nausea with vomiting, unspecified Status: Acute Assessment and Plan: Improving, monitor Supportive care, hold off on NG tube for now (3) Morbid obesity with BMI of 70 and over, adult: Code(s): E66.01 - Morbid (severe) obesity due to excess calories; Z68.45 - Body mass index [BMI] 70 or greater, adult Status: Acute Assessment and Plan: Lifestyle and diet modifications History of gastric sleeve surgery (4) CHF (congestive heart failure): Code(s): I50.9 - Heart failure, unspecified Status: Acute Assessment and Plan: Patient appears euvolemic, continue home meds (5) Afib: Code(s): I48.91 - Unspecified atrial fibrillation Status: Acute Assessment and Plan: Rate controlled on metoprolol and anticoagulated with Eliquis on outpatient basis, continue home meds Plan DVT prophylaxis with eliquis GI prophylaxis not indicated Code status full code Subjective Date/time seen: 01/02/23 09:44 Interval history: No overnight events noted. No chest pain or shortness of breath. No nausea, vomiting or diarrhea. No fevers or chills. Patient states she had a BM after the SBFT. Review of Systems Review of Systems: 12 point review of systems was assessed and was negative except as noted in the HPI Exam Narrative: General: No acute distress, alert and oriented per baseline HEENT: Atraumatic, normocephalic, mucous membranes moist CV: Regular rate and rhythm, S1, S2 Lungs: Clear to auscultation bilaterally, no rales or crackles noted, no wheezes, good air entry Abdomen: Soft, nontender, nondistended Extremities: Normal to inspection Skin: No rashes noted, no lesions or wounds seen Psych: Euthymic, normal affect Objective Data Vital Signs Vital Signs: Vital Signs - 24 hr 01/01/23 22:09 01/02/23 04:31 01/02/23 05:01 Temperature 98.0 F 97.3 F L Pulse Rate 55 L 57 L 40 L Respiratory Rate 14 17 17 Blood Pressure 143/79 H 142/74 H 114/50 L Pulse Oximetry 99 98 98 Oxygen Delivery Room Air 01/02/23 06:14 Temperature Pulse Rate Respiratory Rate Blood Pressure Pulse Oximetry Oxygen Delivery Room Air Intake/Output Intake/Output: Intake & Output 12/30/22 12/31/22 01/01/23 01/02/23 23:59 23:59 23:59 23:59 Intake Total 1100 50 Balance 1100 50 Meds/Results Medications: Active Medications Generic Name Dose Route Start Last Admin Trade Name Anabel PRN Reason Stop Dose Admin Dextrose/Sodium Chloride 1,000 mls @ 100 mls/hr 01/02/23 03:00 01/02/23 06:26 Dextrose 5% Sodium Chloride 0.45% IV CONT 100 mls/hr .Q10H PETER Administration Radiology Results: ITS Impressions Abdomen/Pelvis CT 01/02/23 05:38 Impression: Several mildly distended small bowel loops with probable transition point. Findings suggest early or partial small bowel obstruction. Postsurgical changes, as noted above. Stable 1.4 cm right lower lobe pulmonary nodule. Chest X-Ray 01/02/23 05:45 Impression: Mild central pulmonary venous congestive changes. Labs Labs: Laboratory Results - last 24 hr 01/01/23 01/01/23 01/02/23 22:40 22:47 01:47 WBC 10.3 H RBC 4.22 Hgb 11.7 L Hct 37.9 MCV 89.8 MCH 27.7 MCHC 30.9 L RDW 15.4 H Plt Count 252 MPV 11.7 H Immature Gran % (Auto) 0.3 Neut % (Auto) 76.2 H Lymph % (Auto) 16.4 L Bea[place]gard % (Auto) 5.9 Eos % (Auto) 0.7 Baso % (Auto) 0.5 Lymph # (Auto) 1.69 [place] # (Auto) 0.6 Eos # (Auto) 0.1 Baso # (Auto) 0.1 Abs Immat Gran (
--- NOTE | 2023-01-02 10:00 | P.CDI_ITS ---
CDI Query Clarification Request Documented history of CHF. CHF noted on the assessment and plan. Lasix listed as a home medication. Patient receiving Lasix. Elevated BNP on 01/01/23 lab work. Edema noted in the documentation. Please specify type and acuity of heart failure if known. * Acute * Chronic * Acute on Chronic * Unknown * Systolic * Diastolic * Combined Systolic and Diastolic * Unknown <Vaishnavi Russell RN - Last Filed: 01/02/23 10:06> unknown, euvolemic, no echo available Documented history of CHF. CHF noted on the assessment and plan. Lasix listed as a home medication. Patient receiving Lasix. Elevated BNP on 01/01/23 lab work. Edema noted in the documentation. Please specify type and acuity of heart failure if known. * Acute * Chronic * Acute on Chronic * Unknown * Systolic * Diastolic * Combined Systolic and Diastolic * Unknown <Leeann Willams DO - Last Filed: 01/15/23 09:05>
--- NOTE | 2023-01-02 10:00 | WPDCDIQUERY2 ---
CDI Query Clarification Request Documented history of CHF. CHF noted on the assessment and plan. Lasix listed as a home medication. Patient receiving Lasix. Elevated BNP on 01/01/23 lab work. Edema noted in the documentation. Please specify type and acuity of heart failure if known. Acute Chronic Acute on Chronic Unknown Systolic Diastolic Combined Systolic and Diastolic Unknown <Vaishnavi Russell RN - Last Filed: 01/02/23 10:06> unknown, euvolemic, no echo available Documented history of CHF. CHF noted on the assessment and plan. Lasix listed as a home medication. Patient receiving Lasix. Elevated BNP on 01/01/23 lab work. Edema noted in the documentation. Please specify type and acuity of heart failure if known. Acute Chronic Acute on Chronic Unknown Systolic Diastolic Combined Systolic and Diastolic Unknown <Leeann Willams DO - Last Filed: 01/15/23 09:05>
--- NOTE | 2023-01-02 10:05 | PM.CNGS ---
Assessment and Plan Assessment and plan (1) Small bowel obstruction: Code(s): K56.609 - Unspecified intestinal obstruction, unspecified as to partial versus complete obstruction Status: Acute Assessment and Plan: CT evidence of a small bowel obstruction. She has had multiple small bowel obstructions in the past. She has a significant history of multiple abdominal surgeries that could cause intra-abdominal adhesions. She is currently NPO but does not have an NG in place. Her abdominal pain has improved and she has not vomited since the ER. No signs of bowel function as of yet. Will get a stat water soluble small bowel follow through this morning. If there is normal transit to the colon, then we can start a clear liquid diet. If there is still evidence of a small bowel obstruction, then we will need to place an NG tube for decompression and keep her NPO with gentle maintenance IV fluids. (2) Morbid obesity with BMI of 70 and over, adult: Code(s): E66.01 - Morbid (severe) obesity due to excess calories; Z68.45 - Body mass index [BMI] 70 or greater, adult Status: Acute Assessment and Plan: Significantly increases her risks of surgery. History of gastric sleeve in 2016. She had reportedly lost a significant amount of weight initially, but has gained all her weight back. (3) CHF (congestive heart failure): Code(s): I50.9 - Heart failure, unspecified Status: Acute Assessment and Plan: No recent echocardiogram to review. BNP 100 on admission. Oral furosemide has been changed to IV while NPO. If we keep her NPO, then we will continue gentle maintenance IV fluids. (4) Diabetes: Code(s): E11.9 - Type 2 diabetes mellitus without complications Status: Acute (5) Afib: Code(s): I48.91 - Unspecified atrial fibrillation Status: Acute (6) Anticoagulant long-term use: Code(s): Z79.01 - termite renewal inspector (current) use of anticoagulants Status: Acute Assessment and Plan: Hold Eliquis for now. (7) Hypertension: Code(s): I10 - Essential (primary) hypertension Status: Acute Plan I have discussed the patient's case and plan of care with Dr. Shipley. Thank you for allowing us to see the patient in consultation and we will continue to follow along with you. History of Present Illness Consult details Consult date: 01/02/23 Reason for consult: other (Small bowel obstruction) Requesting physician: Zoran Guallpa MD Narrative: This is a 57-year-old morbidly obese woman with a history of congestive heart failure, atrial fibrillation on chronic anticoagulation type 2 diabetes mellitus, hypertension, and previous small-bowel obstructions, presented to the ER with complaints of abdominal pain and vomiting. She reports having at least 6 previous small bowel obstructions, with the last being in May of 2022 when she was treated conservatively here at [facility]. She has only required surgical intervention for her first small bowel obstruction in 2013 when she was transferred to [facility] and had what sounds like an adhesiolysis. In addition to his surgery, she has had 6 deliveries, laparoscopic gastric sleeve, laparoscopic cholecystectomy, and a ventral hernia repair. Yesterday, she was feeling constipated in the morning and after eating eggs, she developed severe upper abdominal pain. She then developed nausea and vomiting. She reports 4 episodes of vomiting at home and feeling like her symptoms were similar to previous bowel obstructions, therefore she came into the ER for evaluation. Workup in the ER showed CT evidence of a small bowel obstruction. The patient was admitted to the hospitalist service. Our service has been consulted for the small bowel obstruction. She is now seen on the medical floor. She does not have an NG tube. She is still having nausea, but no vomiting since being in the ER. Denies flatus and last BM was 2 days ago. No longer having any abdominal
[2023-01-02 10:12] LABS: Basophils Absolute Auto 0.1 K/mm3 (0.0-0.1); Basophils Percent Auto 0.5 % (0.2-1.2); Eosinophils Absolute Auto 0.1 K/mm3 (0-0.3); Eosinophils Percent Auto 0.9 % (0-4.4); Hematocrit 32.8 % (37.0-47.0); Hemoglobin 10.1 g/dL (12.0-15.0); Immature Granulocyte Absolute 0.02 K/mm3 (0.00-0.031); Immature Granulocyte Percent A 0.2 % (0-0.5); Lymphocytes Absolute Auto 2.69 K/mm3 (0.9-3.2); Lymphocytes Percent Auto 29.6 % (18.3-44.2); Mean Corpuscular HGB Conc 30.8 g/dl (32-36); Mean Corpuscular Hemoglobin 27.9 pg (26-34); Mean Corpuscular Volume 90.6 fl (80-100); Mean Platelet Volume 10.6 fl (7.4-10.4); Monocytes Absolute Auto 0.9 K/mm3 (0.1-0.6); Monocytes Percent Auto 9.7 % (2.6-8.5); Neutrophils Absolute Auto 5.4 K/mm3 (1.3-6.7); Neutrophils Percent Auto 59.1 % (45.5-73.1); Platelet Count Result 208 k/mm3 (150-375); Red Blood Count 3.62 M/mm3 (4.2-5.4); Red Cell Distribution Width 15.3 % (11.5-14.5); White Blood Count 9.1 K/mm3 (4.5-10.0)
[2023-01-02 10:21] LABS: Alanine Aminotransferase 18 U/L (6-35); Albumin Level 3.2 g/dL (3.5-5.1); Alkaline Phosphatase 78 U/L (38-126); Anion Gap 2 mmol/L (8-16); Aspartate Amino Transferase 20 U/L (14-36); Bilirubin,Total 0.4 mg/dL (0.2-1.3); Blood Urea Nitrogen 15 mg/dL (7-17); Calcium 7.9 mg/dL (8.4-10.2); Carbon Dioxide 31 mmol/L (22-30); Chloride 107 mmol/L (98-107); Estimated CRCL calculation 96 ml/min; Estimated Glomerular Filt Rate > 60; Glucose 105 mg/dL (65-110); Potassium 3.5 mmol/L (3.4-5.0); Sodium 140 mmol/L (137-145)
[2023-01-02 14:10] VITALS: BP 106/52; PULSE 45; RESP 18; TEMP 36.5; O2SAT 100
[2023-01-02] MEDS: fentaNYL CITRATE INJ (*CRX) 100 MCG/2 ML VIAL 25 MCG IV PUSH (16:01)
[2023-01-02 16:38] VITALS: BP 147/64; PULSE 42; O2SAT 100
[2023-01-02] MEDS: FUROSEMIDE 80 MG TABLET PO (16:40)
[2023-01-02] MEDS: POTASSIUM CHLORIDE 10 MEQ TABLET.ER PO (16:41)
[2023-01-02] MEDS: buPROPion HCL 75 MG TABLET PO (16:42)
[2023-01-02] MEDS: APIXABAN 5 MG TABLET PO (16:42)
[2023-01-02] MEDS: MULTIVITAMINS THERAPEUTIC TAB (*BKC) 1 TABLET PO (17:29)
[2023-01-02 19:26] VITALS: BP 118/63; PULSE 51; RESP 19; TEMP 36.3; O2SAT 98
[2023-01-02] MEDS: BACLOFEN 10 MG TABLET PO (21:07)
[2023-01-02] MEDS: HYDROcodone/acetaminophen (*CRX) 10-325 MG TABLET 1 TAB BY MOUTH (21:09)
[2023-01-02 22:08] VITALS: O2SAT 98
[2023-01-03 04:26] VITALS: BP 117/79; PULSE 46; RESP 18; TEMP 36.1; O2SAT 99
[2023-01-03 05:21] LABS: Basophils Percent Auto 0.5 % (0.2-1.2); Eosinophils Absolute Auto 0.2 K/mm3 (0-0.3); Eosinophils Percent Auto 2.5 % (0-4.4); Hematocrit 32.9 % (37.0-47.0); Hemoglobin 9.9 g/dL (12.0-15.0); Immature Granulocyte Absolute 0.08 K/mm3 (0.00-0.031); Immature Granulocyte Percent A 1.1 % (0-0.5); Lymphocytes Absolute Auto 2.53 K/mm3 (0.9-3.2); Lymphocytes Percent Auto 34.5 % (18.3-44.2); Mean Corpuscular HGB Conc 30.1 g/dl (32-36); Mean Corpuscular Volume 89.6 fl (80-100); Mean Platelet Volume 10.9 fl (7.4-10.4); Monocytes Absolute Auto 0.8 K/mm3 (0.1-0.6); Monocytes Percent Auto 10.9 % (2.6-8.5); Neutrophils Absolute Auto 3.7 K/mm3 (1.3-6.7); Neutrophils Percent Auto 50.5 % (45.5-73.1); Platelet Count Result 209 k/mm3 (150-375); Red Blood Count 3.67 M/mm3 (4.2-5.4); Red Cell Distribution Width 15.1 % (11.5-14.5); White Blood Count 7.3 K/mm3 (4.5-10.0)
[2023-01-03 05:26] LABS: Alanine Aminotransferase 17 U/L (6-35); Albumin Level 3.2 g/dL (3.5-5.1); Alkaline Phosphatase 75 U/L (38-126); Anion Gap 1 mmol/L (8-16); Aspartate Amino Transferase 23 U/L (14-36); Bilirubin,Total 0.5 mg/dL (0.2-1.3); Blood Urea Nitrogen 11 mg/dL (7-17); Calcium 7.9 mg/dL (8.4-10.2); Carbon Dioxide 31 mmol/L (22-30); Chloride 108 mmol/L (98-107); Estimated CRCL calculation 80 ml/min; Estimated Glomerular Filt Rate 56; Glucose 85 mg/dL (65-110); Potassium 3.5 mmol/L (3.4-5.0); Sodium 140 mmol/L (137-145)
--- NOTE | 2023-01-03 07:55 | PM.DS ---
DS: Admitting Diagnosis Discharge Date 01/03/23 Admitting Diagnosis nausea + emesis DS: Discharge Diagnosis Discharge Diagnosis (1) SBO (small bowel obstruction): Code(s): K56.609 - Unspecified intestinal obstruction, unspecified as to partial versus complete obstruction Status: Acute Assessment and Plan: Appreciate general surgery consultation Passing stool, ADAT (2) Nausea and vomiting: Code(s): R11.2 - Nausea with vomiting, unspecified Status: Acute Assessment and Plan: Improving, monitor Supportive care, hold off on NG tube for now (3) Morbid obesity with BMI of 70 and over, adult: Code(s): E66.01 - Morbid (severe) obesity due to excess calories; Z68.45 - Body mass index [BMI] 70 or greater, adult Status: Acute Assessment and Plan: Lifestyle and diet modifications History of gastric sleeve surgery (4) CHF (congestive heart failure): Code(s): I50.9 - Heart failure, unspecified Status: Acute Assessment and Plan: Patient appears euvolemic, continue home meds (5) Afib: Code(s): I48.91 - Unspecified atrial fibrillation Status: Acute Assessment and Plan: Rate controlled on metoprolol and anticoagulated with Eliquis on outpatient basis, continue home meds Plan DVT prophylaxis with eliquis GI prophylaxis not indicated Code status full code DS: Summary Hospital Course Hospital Course: 57-year-old female with past medical history significant for morbid obesity, atrial fibrillation, rate controlled anticoagulated, DVT, diabetes, hypertension, sleep apnea, x6, hernia repair, sleeve gastrectomy. patient presents to the emergency room due to abdominal pain, nausea and vomiting, denies hematemesis, coffee-ground emesis, bright red blood per rectum, melena, patient had been in her usual state of health up until this point.? Preliminary workup was significant for CT of abdomen and pelvis with small-bowel obstruction. Patient with history of partial small-bowel obstruction and symptoms as well as CT scan that could have indicated this again.? She is obviously a very poor surgical candidate.? Fortunately small-bowel follow-through today showed no obstruction with a transit time of 30 minutes.? She can have her diet advanced as tolerated.? No surgery indicated. Patient tolerated po intake well and was discharged in stable condition. Time Spent with Patient Time attestation: Total time spent providing and/or coordinating discharge services: Exam Narrative: General: No acute distress, alert and oriented per baseline HEENT: Atraumatic, normocephalic, mucous membranes moist CV: Regular rate and rhythm, S1, S2 Lungs: Clear to auscultation bilaterally, no rales or crackles noted, no wheezes, good air entry Abdomen: Soft, nontender, nondistended Extremities: Normal to inspection Skin: No rashes noted, no lesions or wounds seen Psych: Euthymic, normal affect DS: Data Data Completed and Pending Labs on day of discharge: Labs from last 24 hours 01/03/23 01/02/23 05:00 10:05 WBC 7.3 9.1 RBC 3.67 L 3.62 L Hgb 9.9 L 10.1 L Hct 32.9 L 32.8 L MCV 89.6 90.6 MCH 27.0 27.9 MCHC 30.1 L 30.8 L RDW 15.1 H 15.3 H Plt Count 209 208 MPV 10.9 H 10.6 H Immature Gran % (Auto) 1.1 H 0.2 Neut % (Auto) 50.5 59.1 Lymph % (Auto) 34.5 29.6 [place] % (Auto) 10.9 H 9.7 H Eos % (Auto) 2.5 0.9 Baso % (Auto) 0.5 0.5 Lymph # (Auto) 2.53 2.69 [place] # (Auto) 0.8 H 0.9 H Eos # (Auto) 0.2 0.1 Baso # (Auto) 0.0 0.1 Abs Immat Gran (auto) 0.08 H 0.02 Absolute Neuts (auto) 3.7 5.4 Absolute Nucleated RBC 0.0 0.0 Nucleated RBC % 0.0 0.0 Sodium 140 140 Potassium 3.5 3.5 Chloride 108 H 107 Carbon Dioxide 31 H 31 H Anion Gap 1 L 2 L BUN 11 15 D Creatinine 1.20 H 1.00 Estim Creat Clear Calc 80 96 Estimated GFR 56 L > 60 Glucose 85 105 C
[2023-01-03 08:00] VITALS: O2SAT 99
[2023-01-03] MEDS: SODIUM CHLORIDE 0.9% IV 1,000 ML 500 ML IV CONT (08:21)
[2023-01-03 08:26] VITALS: PULSE 54
[2023-01-03] MEDS: APIXABAN 5 MG TABLET PO (08:26)
[2023-01-03] MEDS: DRONEDARONE HCL 400 MG TABLET PO (08:26)
[2023-01-03] MEDS: METOPROLOL TARTRATE 50 MG TAB PO (08:26)
--- NOTE | 2023-01-03 08:27 | PC.NURSE ---
[place] held this am per Dr Cabrales and pt to only get 500 ml ns bolus not 1000 that was ordered
[2023-01-03] MEDS: POTASSIUM CHLORIDE 10 MEQ TABLET.ER PO (09:30)
[2023-01-03] MEDS: buPROPion HCL 75 MG TABLET PO (09:30)
[2023-01-03] MEDS: MULTIVITAMINS THERAPEUTIC TAB (*BKC) 1 TABLET PO (09:30)
[2023-01-03 12:00] LABS: Anion Gap 3 mmol/L (8-16); Blood Urea Nitrogen 12 mg/dL (7-17); Calcium 7.7 mg/dL (8.4-10.2); Carbon Dioxide 30 mmol/L (22-30); Chloride 108 mmol/L (98-107); Estimated CRCL calculation 96 ml/min; Estimated Glomerular Filt Rate > 60; Glucose 104 mg/dL (65-110); Potassium 3.4 mmol/L (3.4-5.0); Sodium 141 mmol/L (137-145)
== END 2023-01-03 14:52 | disposition home or self-care (01) ==
LOC: ANHED 01-02 02:59 → ANH2MED 01-02 04:59
PROVIDERS: Admitting Provider Internal Medicine; Emergency Provider Emergency Medicine; PCP Family Medicine; Visit Provider Student in an Organized Health Care Education/Training Program
DX: K56.609 Unspecified intestinal obstruction, unspecified as to partial versus complete obstruction (principal); I48.91 Unspecified atrial fibrillation; M19.90 Unspecified osteoarthritis, unspecified site; I11.0 Hypertensive heart disease with heart failure; I50.9 Heart failure, unspecified; E11.9 Type 2 diabetes mellitus without complications; G47.30 Sleep apnea, unspecified; N39.0 Urinary tract infection, site not specified; Z98.84 Bariatric surgery status; R91.1 Solitary pulmonary nodule; E66.01 Morbid (severe) obesity due to excess calories; Z68.45 Body mass index [BMI] 70 or greater, adult; R94.31 Abnormal electrocardiogram [ECG] [EKG]; I82.409 Acute embolism and thrombosis of unspecified deep veins of unspecified lower extremity; F17.210 Nicotine dependence, cigarettes, uncomplicated; Z79.01 Long term (current) use of anticoagulants; Z79.51 Long term (current) use of inhaled steroids; Z79.891 Long term (current) use of opiate analgesic; Z79.899 Other long term (current) drug therapy
CPT/HCPCS: 36415; 71045; 74177; 74250; 80048; 80053; 81001; 82948; 83605; 83690; 83735; 83880; 84484; 85025; 87086; 87088; 93005; 96365; 96375; 99285; A9270; G0378; J0131; J0696; J3010; J7030; Q9967

== ENCOUNTER 2023-07-28 13:30 | Outpatient (RCR) | payer OTHER, SELFPAY ==
--- NOTE | 2023-07-08 11:41 | OPREHPOC ---
Outpatient Therapy Plan of Care This is a Multidisciplinary Plan of Care that may contain components documented by all disciplines (PT, OT, and ST.) PT Problem 1 PT Problem #1 Knowledge Deficit PT Goal 1 Goal Pt to be IND with issued HEP Target Visit 8 PT Problem 2 PT Problem #2 Pain PT Goal 1 Goal Pt to report rigoberto hip pain no greater than 5/10 in the last week Target Visit 8 PT Goal 2 Goal Pt to report 50% improvement in overall symptoms Target Visit 8 PT Problem 3 PT Problem #3 Impaired Strength PT Goal 1 Goal Pt to improve 5x STS time from 55s to 30s without UE support Target Visit 8 PT Goal 2 Goal Pt to be able to complete 10 straight leg raises without compensations or rest Target Visit 8 PT Problem 4 PT Problem #4 Impaired Gait PT Goal 1 Goal Pt to demonstrate upright trunk posture during 2 min walk test Target Visit 8 PT Goal 2 Goal Pt to improve 2 min walk distance from 140ft to 220ft. Target Visit 8 PT Problem 5 PT Problem #5 Impaired Functional Mobil PT Goal 1 Goal Pt improve LEFS score from 4/80 to 20/80. Target Visit 8
--- NOTE | 2023-07-08 11:41 | PTOPEVAL1 ---
Assessment and note entered by Barry Beltran, PT, DPT Evaluation Information Assessment Status Evaluation Diagnosis rigoberto hip pain (M16.11 and M16.12) Subjective Information Pt states she has bone on bone in both of her hips , she states she needs both hips replaced but cannot at this time d/t her weight. The orthopedic suggested therapy. She states her pain is everyday 24/7, she states she is on pain meds and still rates very high pain reports. She reports a 7/10 at rest, 10+/10 at worst, however she reports no troubles sleeping. She states she does not do anything around her home, she has 2 home care aids so does not perform any ADLs. She states she spends most of her day laying in bed and will get up about 4x/day to go to the bathroom. Pt states she has been using a rollator for 6 years or more. Reported Pain Level Pain Score 7: Self Report Assessment PT Clinical Summary Isabela presents to therapy today for her initial evaluation with a diagnosis of rigoberto hip pain, this is complicated by her morbid obesity. Pt demonstrates poor functional strength, limited hip ROM, decreased daily mobility, and poor endurance. Skilled therapy services are indicated to address the deficits noted above, to encourage general movement, and to improve baseline function . Plan of Care Interventions Electrical Stimulation,Gait Training,Hot Pack/Cold Pack,Manual Therapy,Neuro Re-education,Patient/ Caregiver Educati,Therapeutic Activities, Therapeutic Exercise PT Services Indicated Yes Treatment Frequency and 2x/wk for 8 visits Duration These treatments will address the objective and functional deficits as defined above. The patient will be advanced safely and appropriately in order for the patient to progress towards his/her prior level of function. Additional exercises will be introduced and as well as a comprehensive home exercise program upon discharge, if needed, ?to ensure carryover of functional gains achieved in the clinic. This treatment plan has been reviewed and agreement upon by the patient.
--- NOTE | 2023-07-25 10:46 | PCPTNOTE ---
Patient canceled appointment due to upset stomach.
--- NOTE | 2023-07-30 12:35 | PCPTNOTE ---
Patient called and left voicemail stating her ride that picks her up did not show up and she would have to cancel her appointment.
--- NOTE | 2023-08-05 11:25 | PCPTNOTE ---
Patient did not show up for scheduled appointment this date. Called and followed up with pt, she states she cannot get reliable transportation. Suggested PT, will follow up with PCP office.
--- NOTE | 2023-08-05 11:28 | PTOPDC ---
Assessment and note entered by Barry Beltran, PT, DPT Evaluation Information Assessment Status Discharge - Pt Not Present Diagnosis rigoberto hip pain (M16.11 and M16.12) Subjective Information Patient did not show up for scheduled appointment this date. Called and followed up with pt, she states she cannot get reliable transportation. Suggested PT, will follow up with PCP office for HH order. Assessment PT Clinical Summary Isabela completed 4 vitis of skilled therapy from 07/08/23 to 07/28/23. She will be discharged at this time and be referred to PT to better suit her mobility needs.
== END 2023-08-12 14:45 | disposition home or self-care (01) ==
LOC: ANHGOSHPT 13:30
DX: M16.0 Bilateral primary osteoarthritis of hip (principal)
CPT/HCPCS: 97110; 97140; 97161; 97530; 99199

== ENCOUNTER 2024-03-14 12:31 | Emergency (ER) | payer OTHER, SELFPAY ==
[2024-03-14 12:37] VITALS: BP 128/86; PULSE 59; RESP 17; TEMP 36.4; O2SAT 95
--- NOTE | 2024-03-14 12:41 | ED.GENADULT ---
HPI - General Adult General Chief complaint: Ear Stated complaint: ear pain, can't hear out of ear Time Seen by Provider: 03/14/24 12:34 History of Present Illness HPI narrative: 58-year-old female presenting to the emergency department for evaluation for right ear pain and pressure that is been ongoing for the last week. Patient states she has also had some decreased hearing out of that ear. Related Data Home Medications Medication Instructions Recorded Confirmed baclofen 10 mg tablet 10 mg PO HS 07/25/20 01/02/23 dronedarone 400 mg tablet (Multaq) 400 mg PO BID 07/25/20 01/02/23 fluticasone propionate 50 2 spray intranasal DAILY PRN Nasal 07/25/20 01/02/23 mcg/actuation nasal Congestion spray,suspension furosemide 80 mg tablet 80 mg PO DAILY 07/25/20 01/02/23 gabapentin 300 mg capsule 300 mg PO BID PRN Pain 07/25/20 01/02/23 hydrocodone 10 mg-acetaminophen See Rx Instructions .Route 07/25/20 01/02/23 325 mg tablet .COMPLEX PRN Pain metoprolol tartrate 50 mg tablet 50 mg PO BID 07/25/20 01/02/23 multivitamin (Daily-Elaine tablet) 1 tablet PO DAILY 07/25/20 01/02/23 apixaban 5 mg tablet (Eliquis) 5 mg PO BID 05/17/22 01/02/23 bupropion HCl 75 mg tablet 75 mg PO DAILY 05/17/22 01/02/23 potassium chloride 10 mEq 10 meq PO DAILY 05/17/22 01/02/23 tablet,extended release(part/cryst) (Klor-Con M) Allergies Allergy/AdvReac Type Severity Reaction Status Date / Time morphine Allergy Unknown Hives Verified 03/14/24 12:39 Penicillins Allergy Unknown Hives Verified 03/14/24 12:39 Review of Systems Review of Systems: All systems reviewed & are unremarkable except as noted in HPI and below PMFSH Past Medical History Medical History Afib Arthritis CHF (congestive heart failure) Diabetes HTN (hypertension) Sleep apnea in adult Surgical History Surgical History H/O section x6 History of exploratory laparotomy 2014 ex lap with adhesiolysis for small bowel obstruction History of hernia repair Ventral hernia repair with mesh History of laparoscopic cholecystectomy History of sleeve gastrectomy Laparoscopic Hx of tonsillectomy as child Family History Family History Father Hypertension Cerebrovascular accident Malignant neoplasm of prostate Social History Social History (System 02/06/23 @ 11:48 by Hayes Ruvalcaba) Years smoked: 2 Smoking status: Light tobacco smoker Tobacco type: cigarettes Second hand tobacco smoke exposure: Yes Alcohol intake: never Drinks per week: 0 Substance use: never Lack of Transportation: No Lack of Food: Never True Current Housing: I Have Housing Concerned About Future Housing: No Difficulty Paying Gas/Electric Bills: No Difficulty Paying for Meds: No Currently Unemployed: No Education: High School Diploma/GED Difficulty w/ Childcare or Family Care: No Living arrangements: with family Gender identity (if verbalized by the patient): Female Spiritual care concerns: No Exam Narrative: APPEARANCE: Well appearing, no pain, no distress, well-nourished. HEAD: normocephalic, atraumatic. EYES: Right TM erythema with effusion NOSE: Normal no drainage EARS:TMS clear with good light reflex. THROAT: Pharynx clear, no exudate. NECK: Supple. No adenopathy, no masses. RESPIRATORY: Airway patent, respirations nonlabored. Clear to auscultation bilaterally, no rales, rhonchi, wheezing. CARDIOVASCULAR: Regular rate and rhythm without murmurs rubs or gallops. ABDOMINAL: Soft, nontender, nondistended, normal bowel sounds MUSCULOSKELETAL: Moves all extremities. Strength/ROM intact, No edema, No calf tenderness. NEURO: Alert. Cranial nerves II through XII intact. Grossly intact SKIN: Warm, dry. Normal Color Course Course Emergency Course: Patient was started on Augmenti
[2024-03-14] MEDS: AMOXICILLIN/CLAVULANATE K 875-125 MG TAB 1 TABLET PO (12:46)
== END 2024-03-14 12:52 | disposition home or self-care (01) ==
LOC: ANHED 12:48
PROVIDERS: Emergency Provider Emergency Medicine; PCP Family Medicine
DX: H66.91 Otitis media, unspecified, right ear (principal); I48.91 Unspecified atrial fibrillation; M19.90 Unspecified osteoarthritis, unspecified site; I11.0 Hypertensive heart disease with heart failure; I50.9 Heart failure, unspecified; E11.9 Type 2 diabetes mellitus without complications; G47.30 Sleep apnea, unspecified
CPT/HCPCS: 99283; A9270